=== PATIENT | female | born 1960 | race Caucasian/White ===

== ENCOUNTER 2019-12-31 21:04 | Inpatient (IN) | payer MEDICAID, MEDICARE ==
[~2019-12-31] VITALS: Ht 162.6 cm; Wt 77.9 kg
--- NOTE | 2019-12-31 21:39 | RAD ---
Exam: CT head INDICATION: Slurred speech TECHNIQUE: Sequential axial images through the head were obtained without the administration of IV contrast. Comparisons: None FINDINGS: No focal parenchymal lesion or hemorrhage is identified. There is no midline shift or sulcal effacement. No acute vascular territory infarction is identified. Norton-white distinction is preserved. The ventricular system is within normal limits without compression hydrocephalus. The basal cisterns are well maintained. The visualized portions of the paranasal sinuses and mastoid air cells are well-pneumatized. No acute fractures. IMPRESSION: No acute intracranial abnormality. Exposure: One or more of the following in the visualized dose reduction techniques were utilized for this examination: 1. Automated exposure control 2. Adjustment of the MA and/or KV according to patient size Use of iterative of reconstructive technique FOR INTERNAL CODING PURPOSES Critical result: Findings discussed with CHRISTIN KWAN at 12/31/2019 9:34 PM. RESULT CODE: (C) Electronically signed by: Gabino Rios MD (12/31/2019 9:36 PM) [id number]
--- NOTE | 2019-12-31 21:44 | PHYS DOC ---
Adult General Chief Complaint Chief Complaint: NEURO SYMPTOMS/DEFICITS HPI HPI Patient is a 59-year-old female who presents with slurred speech and akathisia. Patient reports symptoms of akathisia for past 7 days but reports new onset drooling and slurred speech that started 3 days ago. Nothing known makes better or worse. Nothing is been tried at home to make symptoms better or worse. Patient reports past medical history of bipolar depression and seizures, reports taking Keppra daily, Pristiq for depression daily, and recently discontinued Rexulti (2nd gen antipsychotic) in outpatient setting 11 days ago as this was thought to have caused patient's newly developed movement disorder. Patient denies any recent antibiotic use, febrile illness, recent travel, or illicit drug abuse. Patient ambulatory to our ED today and denies any motor/sensory/focal neurologic deficits Review of Systems Review of Systems Fourteen body systems of review of systems have been reviewed. See HPI for pertinent positives and negative responses, other goddard all other systems are negative, non-pertinent or non-contributory Physical Exam Physical Exam Constitutional: Well developed, well nourished, moderate acute distress, drooling at corners of mouth with generalized body shaking that appears uncontrollable. Was ambulatory without noticeable gait deficits. [] HENT: Normocephalic, atraumatic, bilateral external ears normal, oropharynx moist, no oral exudates, nose normal. [] Eyes: PERRLA, EOMI, conjunctiva normal, no discharge. [] Neck: Normal range of motion, no tenderness, supple, no stridor. [] Cardiovascular:Heart rate tachycardic, regular rhythm, no murmur [] Lungs & Thorax: Bilateral breath sounds clear to auscultation [] Abdomen: Bowel sounds normal, soft, no tenderness, no masses, no pulsatile masses. [] Skin: Warm, dry, no erythema, no rash. [] Back: No tenderness, no CVA tenderness. [] Extremities: No tenderness, no cyanosis, no clubbing, ROM intact, no edema. [] Neurologic: Alert and oriented X 3, cranial nerves II through XII intact, normal motor function, normal sensory function, no focal deficits noted. [] Psychologic: Flat affect, anxious, depressed mood [] Current Patient Data Vital Signs Vital Signs Date Time Temp Pulse Resp B/P (MAP) Pulse Ox O2 Delivery O2 Flow Rate FiO2 12/31/19 21:59 119 15 136/91 (106) 96 12/31/19 21:49 121 18 128/95 (106) 96 12/31/19 21:39 129 14 108/68 (81) 98 12/31/19 21:28 140 15 136/102 (113) 97 Room Air 12/31/19 21:14 97.0 130 31 143/116 (125) 98 Room Air Lab Results Laboratory Tests Test 12/31/19 21:17 12/31/19 21:32 Glucose (Fingerstick) 217 mg/dL White Blood Count 13.8 x10^3/uL Red Blood Count 4.97 x10^6/uL Hemoglobin 15.4 g/dL Hematocrit 46.8 % Mean Corpuscular Volume 94 fL Mean Corpuscular Hemoglobin 31 pg Mean Corpuscular Hemoglobin Concent 33 g/dL Red Cell Distribution Width 17.2 % Platelet Count 349 x10^3/uL Neutrophils (%) (Auto) 70 % Lymphocytes (%) (Auto) 22 % Monocytes (%) (Auto) 6 % Eosinophils (%) (Auto) 1 % Basophils (%) (Auto) 1 % Neutrophils # (Auto) 9.7 x10^3uL Lymphocytes # (Auto) 3.0 x10^3/uL Monocytes # (Auto) 0.8 x10^3/uL Eosinophils # (Auto) 0.1 x10^3/uL Basophils # (Auto) 0.1 x10^3/uL Prothrombin Time 11.0 SEC Prothromb Time International Ratio 1.1 Activated Partial Thromboplast Time 23 SEC Sodium Level 140 mmol/L Potassium Level 3.6 mmol/L Chloride Level 101 mmol/L Carbon Dioxide Level 23 mmol/L Anion Gap 16 Blood Urea Nitrogen 11 mg/dL Creatinine 1.4 mg/dL Estimated GFR (Cockcroft-Gault) 38.5 Glucose Level 200 mg/dL Calcium Level 9.8 mg/dL Creatine Kinase 100 U/L Troponin I Quantitative < 0.017 ng/mL Salicylates Level < 2.8 mg/dL Salicylate Last Dose Date Unknown Salicylate Last Dose Time Unknown Acetaminophen Level < 2 mcg/mL Acetaminophen Last Dose Date Unknown Acetaminophen Last Dose Time Unknown Ethyl Alcohol Level < 10 mg/dL Current Medications Medications (Trade) Dose Ordered Sig/Johny Route PRN Reason Start Time Stop Time Status Last Admin Dose Admin Sodium Chloride 1,000 ml @ 1,000 mls/hr 1X ONCE IV 12/31/19 21:45 12/31/19 22:44 12/31/19 21:54 Diphenhydramine HCl (Benadryl) 50 mg 1X ONCE IVP 12/31/19 21:45 12/31/19 21:52 DC Lorazepam (Ativan Inj) 1 mg 1X ONCE IVP 12/31/19 22:00 12/31/19 22:01 DC 12/31/19 22:25 Current Patient Data Laboratory Tests Test 12/31/19 21:17 Glucose (Fingerstick) 217 mg/dL (70-99) H EKG EKG EKG obtained and interpreted by myself at 2137 hrs. as narrow complex sinus tachycardia at 135 bpm, prolonged QTC 509 otherwise remaining intervals within normal limits, no axis deviation, no obvious ischemic findings among artifact from patient's movement disorder, no STEMI Radiology/Procedures Radiology/Procedures PROCEDURE: PORTABLE CHEST 1V EXAM: AP View of the chest DATE: 12/31/2019 9:17 PM INDICATION: Reason: code stroke, short of air, shakiness, slurred speech / Spl. Instructions: / History: COMPARISON: No Prior FINDINGS: The heart is not enlarged. Mediastinal and hilar contours are normal. No focal parenchymal airspace opacity. No pleural effusion or pneumothorax. Spinal leads project over the thoracic spine. IMPRESSION: 1. No radiographic evidence for acute cardiopulmonary process. Electronically signed by: Grant Coates MD (12/31/2019 9:53 PM) [facility] PROCEDURE: CT CODE STROKE HEAD WO Exam: CT head INDICATION: Slurred speech TECHNIQUE: Sequential axial images through the head were obtained without the administration of IV contrast. Comparisons: None FINDINGS: No focal parenchymal lesion or hemorrhage is identified. There is no midline shift or sulcal effacement. No acute vascular territory infarction is identified. Norton-white distinction is preserved. The ventricular system is within normal limits without compression hydrocephalus. The basal cisterns are well maintained. The visualized portions of the paranasal sinuses and mastoid air cells are well-pneumatized. No acute fractures. IMPRESSION: No acute intracranial abnormality. Exposure: One or more of the following in the visualized dose reduction techniques were utilized for this examination: 1. Automated exposure control 2. Adjustment of the MA and/or KV according to patient size Use of iterative of reconstructive technique FOR INTERNAL CODING PURPOSES Critical result: Findings discussed with CHRISTIN KWAN at 12/31/2019 9:34 PM. RESULT CODE: (C) Course & Med Decision Making Course & Med Decision Making Ambulatory patient with nonspecific movement disorder and observed restlessness was ambulatory to ED room, given presenting complaint and visual drooling of mouth code stroke was called Expedited history, comprehensive physical exam, NIHSS, and blood work obtained prior to patient transport for urgent CT head without contrast [id number] glucose non-concerning, IV access obtained with initiation of IV fluid rehydration, 25 mg IV Benadryl, and 1 mg IV Ativan given for patient's apparent acute dystonia/akathisia/TD Work-up reviewed with patient, not a candidate for invasive medical therapy at this time no immediate life-threatening conditions identified this ER stay. Patient has mild leukocytosis but highly doubt this is from infectious process, most likely reactive in nature I fear patient's ability to go home alone and care for self given current condition suffering from symptomatic tar dive dyskinesia/akathisia. Joint decision to admit patient for further evaluation and for neurology consultation tomorrow On-call hospitalist, Dr. Payan, was contacted and case discussed. He agreed to admit patient for continued medical work-up and management of patient's akathisia/TD Dragon Disclaimer Dragon Disclaimer This electronic medical record was generated, in whole or in part, using a voice recognition dictation system. TPA Screening Tool TPA Screening Tool Screening tool completed (time):2124 Last known normal time: +72 hours prior to arrival Allergies: NKDA Criteria for treating patient with IV r-TPA: For symptom onset of 3 hours or less answer questions 1-9: If any answer 1-9 is YES, the patient is NOT Candidate for IV r-TPA. 1. Evidence of intracranial hemorrhage on pretreatment CT. 2. Clinical presentation suggestive of subarachnoid hemorrhage, even with normal CT 3. Known arteriovenous malformation or aneurysm. 4. Recent (within 3 months), intracranial surgery, serious head trauma, or previous stroke. 5. History of intracranial hemorrhage. 6. On repeated measurements, systolic blood pressure >185 mmHg or diastolic blood pressure >110 mmHg at the time treatment is to begin, and pt requires aggressive treatment to reduce blood pressure to within these limits (see BP Management section of TPA orders). 7. Known bleeding diathesis, including but not limited to: A) Platelet count less than 100,000mm3 B) Current or recent use of oral anticoagulants (e.g. Warfarin Sodium) with an INR greater than 1.7 C) Administration of heparin within 48 hours preceding the onset of stroke and an elevated PTT 8. Evidence of active bleeding or acute trauma. 9. Patient or family refuse. Warning/Consideration: If any answer 10-18 is YES, evaluate increased risk versu s benefit. 10. Minor neurological deficit or rapidly improving symptoms. 11. Patient was observed to have seizure at the same time of onset of stroke symptoms. 12. Abnormal blood glucose (less than 50 or greater than 400 mg/dL). 13. Patient has had major surgery or serious trauma, excluding head trauma, in previous 14 days. 14. History of gastrointestinal or urinary track hemorrhage within 21 days. 15. Post ME or pericarditis. 16. Recent arterial puncture at a noncompressible site. 17. Recent lumbar puncture. 18. . For symptoms greater than 3 hours but less than 4.5 hours duration: Warning/Consideration: If any answer 19-22 is YES, evaluate increased risk versus benefit. 19. Age greater than 80 years. 20. Current use of oral anticoagulants (e.g.Warfarin Sodium) regardless of protime. 21. Severe stroke (Baseline NIHSS Stroke Scale greater than 25). 22. Patient has both diabetes and history of stroke Initiate TPA (Alteplase)? No. Patient with history of stroke and prior TPA administration has NIHSS 0 today with last known normal greater than 72 hours prior to arrival, not a cand idate at this time. Critical Care Time Critical Care Time This patient required critical care. Due to the fact that the patient required a significant amount of one on one physician - patient contact time, ordering and review of studies, arranging urgent treatment with development of a management plan, evaluation of patients response to treatment with frequent reassessments, and discussions with other providers this patient required critical care time in excess of 30 minutes. Critical care time was indicated due to the inherent instability and/or potential for instability in this patient. The critical care time that is allocated to this patient is above and beyond any time spent on any other billable procedures performed on this patient. Final Impression Final Impression Acute akathisia/TD/dystonia History of bipolar depression History of CVA status post TPA administration Departure Departure: Impression: Primary Impression: Antipsychotic-induced akathisia Additional Impressions: At risk for aspiration Elevated serum creatinine Narrow complex tachycardia Disposition: ADMITTED INPATIENT Admitting Physician: Dorian Payan Condition: STABLE Referrals: PCP,NO (PCP) Justification of Admission: Justification of Admission: Justification of Admission Dx: Yes (Symptomatic tar dive dyskinesia requiring inpatient management and neurologist consultation) Problem Qualifiers CHRISTIN KWAN DO Dec 31, 2019 21:44
[2019-12-31] MEDS ORDERED: IV NORMAL SALINE 1,000ML 1,000 ML IV ONE ×2 (21:45→23:30)
[2019-12-31] MEDS ORDERED: diphenhydrAMINE 50 MG/ML VIAL IVP ONE ×2 (21:45→22:30)
--- NOTE | 2019-12-31 21:56 | RAD ---
EXAM: AP View of the chest DATE: 12/31/2019 9:17 PM INDICATION: Reason: code stroke, short of air, shakiness, slurred speech / Spl. Instructions: / History: COMPARISON: No Prior FINDINGS: The heart is not enlarged. Mediastinal and hilar contours are normal. No focal parenchymal airspace opacity. No pleural effusion or pneumothorax. Spinal leads project over the thoracic spine. IMPRESSION: 1. No radiographic evidence for acute cardiopulmonary process. Electronically signed by: Grant Coates MD (12/31/2019 9:53 PM) SELMA
[2019-12-31 22:07] LABS: BASO # 0.1 x10^3/uL (0.0-0.2); BASO % 1 % (0-3); EOS # 0.1 x10^3/uL (0.0-0.7); EOS % 1 % (0-3); HEMATOCRIT 46.8 % (36.0-47.0); HEMOGLOBIN 15.4 g/dL (12.0-15.5); LYMPH % 22 % (24-48); MEAN CORPUSCULAR HEMOGLOBIN 31 pg (25-35); MEAN CORPUSCULAR HGB CONC 33 g/dL (31-37); MEAN CORPUSCULAR VOLUME 94 fL (79-100); MONO # 0.8 x10^3/uL (0.0-1.1); MONO % 6 % (0-9); NEUT # 9.7 x10^3uL (1.8-7.7); NEUT % 70 % (31-73); PLATELET COUNT 349 x10^3/uL (140-400); RED BLOOD COUNT 4.97 x10^6/uL (3.50-5.40); RED CELL DISTRIBUTION WIDTH 17.2 % (11.5-14.5); WHITE BLOOD COUNT 13.8 x10^3/uL (4.0-11.0)
[2019-12-31 22:13] LABS: CALCIUM 9.8 mg/dL (8.5-10.1); CREATININE 1.4 mg/dL (0.6-1.0); GFR 38.5; POTASSIUM 3.6 mmol/L (3.5-5.1)
[2019-12-31 22:17] LABS: ACETAMIN < 2 mcg/mL (10-30); ETHANOL < 10 mg/dL (0-10); SALIC < 2.8 mg/dL (2.8-20.0)
--- NOTE | 2019-12-31 23:25 | EKG ---
[address] [address] Test Date: 2019-12-31 Test Time: 21:30:07 Pat Name: NORMAN ANGEL Department: Room: Gender: F Rewrite Editor: : 1960 Requested By: CHRISTIN KWAN Order Number: [id number] Reading MD: Measurements Intervals [place] Rate: 135 P: 30 [place]: 104 QRS: 7 QRSD: 80 T: 99 QT: 336 QTc: 509 Interpretive Statements SINUS TACHYCARDIA COMPLEX(ES) WITH ABERRANT INTRAVENTRICULAR CONDUCTION S1,S2,S3 PATTERN ST & T ABNORMALITY, CONSIDER HIGH LATERAL ISCHEMIA OR LEFT VENTRICULAR STRAIN ABNORMAL ECG RI6.02 No previous ECG available for comparison
[2019-12-31] MEDS ORDERED: diphenhydrAMINE 50 MG/ML VIAL IVP PRN (23:30)
[2020-01-01] VITALS (7 sets, daily range): BP systolic 92–135; BP diastolic 62–96
[2020-01-01 02:36] LABS: AMPHETAMINE/METHAMPHETAMINE NEG (NEG); BARBITURATES NEG (NEG); BENZODIAZEPINES NEG (NEG); CANNABINOIDS NEG (NEG); COCAINE NEG (NEG); METHADONE NEG (NEG); OPIATES NEG (NEG); PHENCYCLIDINE NEG (NEG)
[2020-01-01 02:41] LABS: CLARITY,URINE CLEAR; COLOR,URINE YELLOW; GLUCOSE,URINE NEG (NEG)
[2020-01-01 02:43] LABS: BACTERIA,URINE 0 /HPF (0-FEW); BILIRUBIN,URINE NEG (NEG); NITRITE,URINE NEG (NEG); RBC,URINE 0 /HPF (0-2); SQUAMOUS EPITHELIAL CELL,UR MANY /LPF; UROBILINOGEN,URINE 0.2 mg/dL (0.2 mg/dL); WBC,URINE OCC /HPF (0-4)
[2020-01-01] MEDS ORDERED: ALPR1TAB6 PO (11:01)
[2020-01-01] MEDS ORDERED: LEVE750T23 PO (11:01)
[2020-01-01] MEDS ORDERED: BREX2TAB PO (11:01)
[2020-01-01] MEDS ORDERED: DESV50TA12 PO (11:01)
[2020-01-01] MEDS ORDERED: ALPRAZolam 0.5 MG TABLET PO SCH ×2 (11:45→12:15)
[2020-01-01] MEDS ORDERED: DESVENLAFAXINE 50 MG TAB.ER.24H. PO SCH (12:00)
--- NOTE | 2020-01-01 17:30 | HP ---
ADMIT DATE: 12/31/2019 HISTORY OF PRESENT ILLNESS: The patient is a 59-year-old female patient who came to the Emergency Room complaining of slurring speech and akathisia. She reported symptoms of akathisia for about 7 days, but reports new onset drooling and slurred speech that started 3 days ago, noting nothing known makes her symptoms better or worse. She apparently stopped her Rexulti about 11 days ago. This was thought to have caused the patient's newly developed movement disorder. She stated that her symptoms got worse since Monday, Monday, Monday. Yesterday, her symptoms were dramatically worsened and she came to the Emergency Room for further evaluation and treatment. She did complain of difficulty also swallowing, but denied any weakness, tingling, or numbness. She was evaluated in the Emergency Room and her lab work shows slightly elevated white cell count of 13,800. Her chemistry showed that her blood sugar is slightly elevated and mild lactic acidosis and high anion gap of 16, slightly impaired kidney function. Her urinalysis was essentially unremarkable and toxic screen was essentially negative. CT scan of the head showed the patient has no acute intracranial abnormalities and her chest x-ray also showed no radiographic evidence for acute cardiopulmonary process and the patient was admitted for further evaluation and to consult the neurologist. PAST MEDICAL HISTORY: Significant for stroke with right sided hemiplegia, aphasia and dysphagia in 2016. She has had multiple seizures since then. She has multiple TIAs that manifest usually as marked confusion. She has a history of hyperlipidemia and bronchial asthma. PAST SURGICAL HISTORY: Significant for 7 back surgeries. She has total abdominal hysterectomy, bilateral salpingo-oophorectomy, cholecystectomy, appendectomy, right ankle fracture, status post open reduction and internal fixation, left knee arthroscopic surgery. She underwent colonoscopy with polypectomy and esophagogastroduodenoscopy and esophageal dilatation about 10 years ago. ALLERGIES: SHE IS ALLERGIC TO PENICILLIN. MEDICATIONS: She is currently on following medications: She is on Keppra 750 mg once a day extended release form. She is on desvenlafaxine 50 mg daily, Rexulti 2 mg at bedtime, alprazolam 1 mg daily. FAMILY HISTORY: She has 3 brothers, 1 older and has lung cancer and colon cancer. Two younger brothers are healthy. Her mother is alive at age of 84 and she is in remission from leukemia and bone cancer. Her father is still alive at age of 84. Has thyroid disease and diabetes mellitus. SOCIAL HISTORY: She currently lives with her boyfriend. She has 1 son who is alive and 1 daughter that was . She has never smoked. Drinks alcohol occasionally. Does not use any drugs and she is currently on disability. REVIEW OF SYSTEMS: The patient denies any blurring of vision, cataract, glaucoma or macular degeneration. Denied any earache, tinnitus or sensorineural deafness. Denied any nosebleeds, stuffy nose or postnasal drip. Denied any sore throat, sore tongue, toothache, hoarseness of voice. Did complain of difficulty swallowing, had some nausea and vomiting yesterday. Denied any diarrhea or constipation. Denied any hematemesis, melena, hematochezia. Denied any dysuria, frequency or hematuria. Denied any chest pain, shortness of breath, orthopnea or paroxysmal nocturnal dyspnea. Denied any cough, phlegm or hemoptysis. Denied any chills, rigors or fever. Her most complaint was her slurring of speech and drooling as well as akathisia with unstoppable tremors. She apparently was given dose of Ativan and Benadryl and that somehow helped her tremors. PHYSICAL EXAMINATION: GENERAL: On arrival to the Emergency Room, she looked well and was clearly in no apparent respiratory distress. No pallor, jaundice, cyanosis or thyromegaly. No jugular venous distention. No limb edema. VITAL SIGNS: Her heart rate was 130, blood pressure was 143/116, temperature was 97, respiratory rate was 31 and oxygen saturation was 98%. HEAD, EYES, EARS, NOSE AND THROAT: Normocephalic, atraumatic. NECK: Supple. HEART: Showed normal first and second heart sounds. No gallop or murmur. CHEST: Clear to auscultation. No crepitation or rhonchi. ABDOMEN: Distended, soft, nontender. No guarding or rigidity. No organomegaly. All hernial orifice intact. Bowel sounds normal. NEUROLOGIC: She is awake, alert, responding appropriately. All cranial nerves intact. She moves extremities; however, she has constant tremors in her right upper and right lower extremity. I have not seen her drooling and she was able to talk at least when I saw her without any difficulty. LABORATORY DATA: Showed a white cell count of 13,800, hemoglobin 15.4, hematocrit 46, MCV 94 and platelet count 349,000. Her chemistry showed a serum sodium 140, potassium 3.6, chloride 101, bicarbonate 23, anion gap of 16, BUN 11, creatinine 1.4, estimated GFR was 38 mL per minute. Her glucose was 200, calcium was 9.8, lactic acid was 2.2. CK was 100. Her prothrombin time, INR and aPTT were normal. Toxic screen was unremarkable and urinalysis was essentially unremarkable. Urine was yellow, clear with a pH of 5, specific gravity more than 1.030. The urine was negative for protein, glucose, trace of ketones, negative for blood, nitrite, leukocyte esterase. There are no rbc's, no wbc's, and no bacteria. ASSESSMENT AND PLAN: In summary, the patient was admitted basically with abnormal movement in the form of tremors. Her serum creatinine is slightly elevated and she has obviously other medical problems which include seizures, bipolar disorder. She has had a history of stroke before with right sided hemiplegia, aphasia and dysphagia. We stopped the Rexulti and I will consult Dr. Keys to assist with management and I will look also into Pristiq and see it can induce this form of abnormal movement, I will discontinue that also. IAN BRENNAN MD DR: JOSE MARTIN/ritika JOB#: [id number] / [id number]
[2020-01-01] MEDS: POTASSIUM CL 20MEQ-0.45% NACL 1,000 ML IV SCH (17:47)
[2020-01-01] MEDS ORDERED: NON FORMULARY ITEM (Brexpiprazole (Rexulti) 2 MG) PO SCH (21:00)
[2020-01-01] MEDS ORDERED: LORazepam 1 MG TABLET PO SCH (21:00)
[2020-01-01] MEDS ORDERED: levETIRAcetam 250 MG TABLET PO SCH (21:00)
[2020-01-01] MEDS: diphenhydrAMINE HCL 25 MG CAPSULE PO SCH (21:07)
[2020-01-01] MEDS: levETIRAcetam 500 MG TABLET PO SCH (21:07)
--- NOTE | 2020-01-02 01:14 | CONS ---
DATE OF CONSULTATION: 01/01/2020 NEUROLOGIC CONSULTATION REFERRING PHYSICIAN: Dr. Sanchez. REASON FOR CONSULTATION: Intermittent abnormal movements. HISTORY OF PRESENT ILLNESS: This is a 59-year-old right-handed female who was admitted through Emergency Room on 12/31/2019 on account of slurred speech and intermittent movements of the entire body for approximately 2-3 months. These symptoms have worsened in the last 7 days and more prominent the night before admission. She described jerking movement of the upper and lower extremities and shaking of the tongue. The patient stated she has had history of depression with intermittent psychosis. She was placed on atypical antipsychotic medication called Rexulti, which was discontinued approximately 10 days ago; however, her symptoms have been worsened in the last 3 days. The patient admitted of having anxiety disorders, which usually aggravated her symptoms. She denies headaches, visual disturbances, nausea, vomiting, chest pain, shortness of breath or palpitation, weakness or paresthesia. In the Emergency Room, initial nonenhanced head CT scan revealed no acute intracranial process. The patient was treated with Ativan and Benadryl with significant improvement of movement. She denies rigidity, fever or chills. PAST MEDICAL HISTORY: Significant for stroke resulted in right hemiparesis with aphasia in 2016, seizure disorder resulted from the stroke, frequent transient ischemic attacks, hyperlipidemia and asthma. Depression and anxiety disorder. PAST SURGICAL HISTORY: Positive for total abdominal hysterectomy, cholecystectomy, appendectomy, right ankle fracture required surgery, left knee arthroscopic surgery, colonoscopy with polypectomy and esophageal stricture required dilatation. SOCIAL HISTORY: The patient is single. He has 1 son and 1 daughter, Adela, who 8 years ago from severe pneumonia. She denies smoking, but she drinks alcohol occasionally. She denies illegal drug use. FAMILY HISTORY: One brother had lung cancer and colon cancer. Mother is 84-year-old and had leukemia with remission along with bone cancer. Father is 84-year-old and had diabetes mellitus and thyroid disease. CURRENT HOME MEDICATIONS: Keppra 750 mg once daily, Pristiq 25 mg daily. CURRENT HOSPITAL MEDICATIONS: Benadryl 25 mg at bedtime, lorazepam 1 mg at bedtime and alprazolam 1 mg p.r.n. for agitation. ALLERGIES: PENICILLIN. REVIEW OF SYSTEMS: A 10-point review of system was performed as mentioned above in history of present illness, otherwise unremarkable. PHYSICAL EXAMINATION: GENERAL: Well-developed, well-nourished female, not in acute distress. She weighs 74.7 kilos. VITAL SIGNS: Blood pressure 120/88, respiratory rate is 17, pulse is 86, temperature 98.3, oxygen saturation 96% on room air. HEENT: Normocephalic, atraumatic, otherwise unremarkable. NECK: Supple. Negative for carotid bruit, lymphadenopathy or thyromegaly. LUNGS: Clear to A and P. CARDIOVASCULAR: Regular rate and rhythm, normal S1, S2. There is no S3, S4 or murmur. ABDOMEN: Soft. Bowel sounds positive. EXTREMITIES: Negative for cyanosis, clubbing or edema. NEUROLOGICAL: MENTAL STATUS: The patient is alert and oriented x 3. Speech is fluent. There is no language dysfunction. Memory, judgment, and abstracting thinking are normal. The patient denies hallucination or delusion. CRANIAL NERVES: Visual lopez are full. The pupils are reactive to light and accommodation. Extraocular movements are intact. There is no nystagmus. There is no facial motor or sensory deficit. Hearing is intact bilaterally. The palate is elevated symmetrically. Sternocleidomastoid muscles are powerful bilaterally. The patient shrugs her shoulders symmetrically, protrudes her tongue in the midline without fasciculation or atrophy. MOTOR EXAMINATION: No focal muscle bulk was seen. The tone is normal. The strength is 5/5 throughout. The patient had mild postural tremor of the upper extremities. SENSORY EXAMINATION: Revealed normal pinprick, light touch, vibratory and position senses. Deep tendon reflexes were symmetric and hypoactive with absent Achilles responses. GAIT: The stance is steady. DIAGNOSTIC: Initial nonenhanced head CT scan revealed no acute intracranial process. Chest x-ray revealed no acute cardiopulmonary process. LABORATORY DATA: CBC revealed white blood cells of 13.8 thousand, hemoglobin 15.4, hematocrit 46.8 and platelet count 349,000. Chemistry revealed sodium of 140, potassium 3.6, chloride 101, CO2 of 23, BUN 11, creatinine 1.4, glucose 200. Lactic acid is high at 2.2, calcium 9.8, creatinine kinase is 100. Troponin level is normal with high TSH at 4. Urinalysis, no evidence of urinary tract infections. Urine drug screen is negative. DIAGNOSTIC DATA: EKG revealed sinus tachycardia in the Emergency Room with prolonged QTC, otherwise unremarkable. IMPRESSION: 1. Involuntarily movement disorders, probably induced by typical antipsychotic medication -- Rexulti. 2. Multiple medical problems include anxiety disorder, depressions with intermittent psychotic features. 3. Seizure disorder, probably due to old stroke in 2016. 4. Multiple medical problems include recurrent transient ischemic attacks, hypertension and asthma. RECOMMENDATIONS: 1. Continue with current anticonvulsant -- Keppra for seizure. 2. Continue with current management initiated by Dr. Sanchez and home medications. 3. Treat the underlying depressions and anxiety. 4. We will arrange for electroencephalogram on outpatient basis. 5. We will repeat a CBC and chemistry in the morning. M Neal SALAZAR MD DR: MIMI/ritika JOB#: [id number] / [id number]
[2020-01-02] MEDS: POTASSIUM CL 20MEQ-0.45% NACL 1,000 ML IV SCH ×2 (04:09→13:51)
[2020-01-02 06:04] VITALS: BP 115/69
[2020-01-02 06:21] LABS: HEMOGLOBIN 12.1 g/dL (12.0-15.5); RED BLOOD COUNT 3.84 x10^6/uL (3.50-5.40); RED CELL DISTRIBUTION WIDTH 16.6 % (11.5-14.5)
[2020-01-02 06:37] LABS: ALBUMIN 2.9 g/dL (3.4-5.0); CALCIUM 7.9 mg/dL (8.5-10.1); GFR 56.7; POTASSIUM 3.5 mmol/L (3.5-5.1); TOTAL BILIRUBIN 0.4 mg/dL (0.2-1.0); TOTAL PROTEIN 5.9 g/dL (6.4-8.2)
[2020-01-02] MEDS: DESVENLAFAXINE SUCCINATE 25 MG PO SCH ×2 (07:02→11:59)
[2020-01-02] MEDS: levETIRAcetam 500 MG TABLET PO SCH ×2 (08:14→21:30)
--- NOTE | 2020-01-02 09:55 | PN ---
DATE: 01/02/2020 REFERRING PHYSICIAN: Dr. Sanchez. SUBJECTIVE: The patient continues to have continuous involuntarily movement involving the upper extremities and lips consistent with tardive dyskinesia, likely due to side effects of atypical antipsychotic medication, Rexulti which was discontinued about 12 days ago. She denies headaches, visual disturbances or any other new medical or neurological complaints. OBJECTIVE: GENERAL: Well-developed, well-nourished female, not in acute distress. VITAL SIGNS: Blood pressure 115/69, respiratory rate 20, pulse is 69, temperature is 97.3, oxygen saturation 97% on room air. HEENT: Normocephalic, atraumatic, otherwise unremarkable. NECK: Supple. Negative for carotid bruit, lymphadenopathy or thyromegaly. LUNGS: Clear to A and P. CARDIOVASCULAR: Regular rate and rhythm, normal S1, S2. ABDOMEN: Soft. Bowel sounds positive. EXTREMITIES: Negative for cyanosis, clubbing or edema. NEUROLOGICAL EXAM: Mental Status: The patient is alert and oriented x 3. The speech is fluent. There is no language dysfunction. Cranial nerves are intact. Motor examination continues to have tardive dyskinesia involving the upper extremities and lips. Otherwise, the tone is normal. The strength is 5/5 throughout. Sensory examination revealed normal pinprick and light touch senses throughout. Deep tendon reflexes were asymmetric and hypoactive with absent Achilles responses. Gait not tested. LABORATORY DATA: CBC revealed white blood cells of 5000, hemoglobin 12.1, hematocrit 36, platelet count 167. Chemistry revealed sodium of 140, potassium 3.5, chloride 107, CO2 of 25, BUN 8, creatinine 1, glucose 97, calcium 7.9. IMPRESSION: 1. Tardive dyskinesia as described above. 2. Seizure disorder secondary to previous stroke. 3. Multiple medical problems include frequent transient ischemic attacks, hypertension and asthma. RECOMMENDATIONS: 1. Treat the underlying tardive dyskinesia. The patient can be started on Ingrezza, but is not available primarily on the hospital formerly. 2. Continue with current management initiated by Dr. Sanchez along with current medications. 3. We will arrange for electroencephalogram on an outpatient basis. 4. Treat the underlying depressions and anxiety disorders. M Neal SALAZAR MD DR: MIMI/ritika JOB#: [id number] / [id number]
[2020-01-02 12:18] VITALS: BP 106/74
[2020-01-02] MEDS: DAPTOMYCIN IV SCH (13:09)
[2020-01-02] MEDS: NORMAL SALINE IV SCH (13:09)
--- NOTE | 2020-01-02 14:15 | PN ---
DATE: 01/02/2020 SUBJECTIVE: The patient is resting, slightly propped up in bed, somewhat sleepy, but arousable. Her tremors are much less than yesterday. She stated that she has been very sleepy, she has not slept for almost 4 nights according to her. We did give her also Ativan and diphenhydramine at bedtime last night and that might have contributed to that. She is also on alprazolam. PHYSICAL EXAMINATION: GENERAL: When I examined her this afternoon, she looked well and was clearly in no apparent respiratory distress. No pallor, jaundice, cyanosis or thyromegaly. No jugular venous distention. No lower limb edema. VITAL SIGNS: Her heart rate was 78, blood pressure was 106/74, temperature was 97.8, respiratory rate 12 and oxygen saturation was 96%. HEAD, EYES, EARS, NOSE AND THROAT: Showed normocephalic, atraumatic. NECK: Supple. HEART: Showed normal first and second heart sounds. No gallop or murmur. CHEST: Clear to auscultation. No crepitation or rhonchi. ABDOMEN: Distended, soft, nontender. No guarding or rigidity. No organomegaly. All hernial orifices intact. Bowel sounds normal. NEUROLOGIC: She is sleepy, but arousable. All cranial nerves intact. She moves extremities without difficulty. She managed to get out of the bed to a bedside commode. Her tremors and drooling is definitely much improved. Her intake was 1000. No output was recorded. LABORATORY DATA: As of this morning, her white cell count is down to 5000, hemoglobin 12, hematocrit 36, MCV 94 and platelet count of 167,000. Serum sodium was 140, potassium 3.5, chloride 107, bicarbonate 25, anion gap of 8, BUN 8, creatinine 1, estimated GFR was 56 mL per minute. Her glucose 97, calcium was 7.9 and total bilirubin, AST, ALT, alkaline phosphatase were normal. Total protein was 5.9, albumin was 2.9. Her PT, INR and aPTT are all normal. Urinalysis essentially unremarkable and toxic screen was negative. ASSESSMENT: 1. Abnormal movement induced by antipsychotic medication, much improved now that her Rexulti was discontinued and her Pristiq is cut down from 50 to 25. 2. Acute kidney injury, improving. 3. Seizure disorder for which she is on Keppra. 4. She apparently had initially some dysphagia and possible aspiration pneumonia and her blood cultures have grown gram-positive cocci in clusters suggestive of Staph in 2/4 bottles. I did start her on daptomycin. We will add Zosyn to cover anaerobes and I have consulted Physical and Occupational Therapy as well as Speech Therapy. I would also consult Dr. Lee to assist with management of her bipolar disorder. IAN BRENNAN MD DR: JOSE MARTIN/ritika JOB#: [id number] / [id number]
[2020-01-02] MEDS ORDERED: LORazepam 0.5 MG TABLET PO PRN (14:45)
[2020-01-02 15:49] VITALS: BP 114/77
[2020-01-02] MEDS: MEROPENEM 500 MG in IV NORMAL SALINE 50ML 50 ML IV SCH (16:37)
[2020-01-02 19:52] VITALS: BP 137/82
[2020-01-02] MEDS: diphenhydrAMINE HCL 25 MG CAPSULE PO SCH (21:30)
[2020-01-02 23:07] VITALS: BP 121/82
[2020-01-03] MEDS: MEROPENEM 500 MG in IV NORMAL SALINE 50ML 50 ML IV SCH ×2 (00:22→09:10)
[2020-01-03] MEDS: POTASSIUM CL 20MEQ-0.45% NACL 1,000 ML IV SCH ×3 (00:22→23:33)
[2020-01-03 06:18] VITALS: BP 114/89
[2020-01-03 06:18] LABS: HEMATOCRIT 37.8 % (36.0-47.0); HEMOGLOBIN 12.4 g/dL (12.0-15.5); RED BLOOD COUNT 3.96 x10^6/uL (3.50-5.40); RED CELL DISTRIBUTION WIDTH 16.8 % (11.5-14.5); WHITE BLOOD COUNT 3.7 x10^3/uL (4.0-11.0)
[2020-01-03 06:32] LABS: ALBUMIN 2.5 g/dL (3.4-5.0); ALBUMIN/GLOBULIN RATIO 0.8 (1.0-1.7); CALCIUM 7.9 mg/dL (8.5-10.1); CREATININE 0.9 mg/dL (0.6-1.0); GFR 64.1; POTASSIUM 3.8 mmol/L (3.5-5.1); TOTAL BILIRUBIN 0.4 mg/dL (0.2-1.0); TOTAL PROTEIN 5.5 g/dL (6.4-8.2)
[2020-01-03] MEDS ORDERED: BENZTROPINE 2 MG/2 ML AMPUL. IM PRN (09:00)
[2020-01-03] MEDS: LACTOBACILLUS RHAMNOSUS GG 1 CAPSULE. PO SCH ×2 (09:10→20:46)
[2020-01-03] MEDS: levETIRAcetam 500 MG TABLET PO SCH ×2 (09:11→20:46)
--- NOTE | 2020-01-03 09:24 | PN ---
DATE: 01/03/2020 SUBJECTIVE: The patient continues to have abnormal involuntarily movements of the hands and lips consistent with tardive dyskinesia probably induced by atypical antipsychotic medication. She denies chest pain, shortness of breath or palpitation, dysarthria or dysphagia. She feels weak all over. OBJECTIVE: GENERAL: Well-developed, well-nourished female, not in acute distress. VITAL SIGNS: Blood pressure 114/89, respiratory rate 20, pulse is 71, temperature 98.6, and oxygen saturation 97% on room air. HEENT: Normocephalic, atraumatic, otherwise unremarkable. NECK: Supple. Negative for carotid bruit, lymphadenopathy or thyromegaly. LUNGS: Clear to A and P. CARDIOVASCULAR: Regular rate and rhythm, normal S1, S2. ABDOMEN: Soft. Bowel sounds positive. EXTREMITIES: Negative for cyanosis, clubbing or edema. NEUROLOGIC EXAM: Mental status, alert and oriented x 3. Speech is fluent. There is no language dysfunction. Cranial nerves are intact. No focal motor or sensory deficits. The patient has tardive dyskinesia involving the hands and lips. Gait not tested. LABORATORY DATA: CBC revealed white blood cells of 3.7 thousand, hemoglobin 12.4, hematocrit 37.8, and platelet count 160,000. Chemistry: Sodium 140, potassium 3.8, chloride 108, CO2 of 22, BUN 6, creatinine 0.9, glucose 87, and calcium is 7.9. Blood culture grows positive cocci. IMPRESSION: 1. ___ movements involving the distal upper extremities and lips consistent with tardive dyskinesia, probably induced by previous atypical antipsychotics. 2. Positive blood culture for gram-positive cocci. Therefore, she was started on broad-spectrum antibiotic by Dr. Sanchez. 3. Seizure disorder -- stable. 4. Multiple psychiatric problems including depression, anxiety, and bipolar disorder. RECOMMENDATIONS: 1. We will start Cogentin 0.5 t.i.d. 2. Continue with current management. 3. Await for psychiatric consult by Dr. Lee. M Neal SALAZAR MD DR: MIMI/ritika JOB#: [id number] / [id number]
[2020-01-03] MEDS: BENZTROPINE MESYLATE 0.5 MG TABLET PO SCH ×3 (11:11→20:46)
[2020-01-03 11:51] VITALS: BP 114/85
[2020-01-03] MEDS: NORMAL SALINE IV SCH (13:31)
[2020-01-03] MEDS: DAPTOMYCIN IV SCH (13:31)
[2020-01-03] MEDS ORDERED: ALPRAZolam 0.5 MG TABLET PO PRN ×2 (13:45→14:00)
[2020-01-03] MEDS ORDERED: ACETAMINOPHEN 325 MG TABLET PO PRN (15:30)
--- NOTE | 2020-01-03 18:34 | PN ---
DATE: 01/03/2020 SUBJECTIVE: The patient is sitting on the edge of the bed, continued to complain of tremors. She is somewhat anxious, complaining of pain in her left leg; however, she was able to walk with a walker. PHYSICAL EXAMINATION: GENERAL: When I examined her, she looked well and was clearly in no apparent respiratory distress. No pallor, jaundice, cyanosis or thyromegaly. No jugular venous distention. No limb edema. VITAL SIGNS: Her heart rate was 60, blood pressure 114/85, temperature 99.3, respiratory rate was 20, and oxygen saturation was 97%. HEAD, EYES, EAR, NOSE AND THROAT: Normocephalic, atraumatic. NECK: Supple. HEART: Showed normal first and second heart sounds with no gallop or murmur. CHEST: Clear to auscultation. No crepitation or rhonchi. ABDOMEN: Distended, soft, nontender. NEUROLOGIC: She is awake, alert, responding appropriately. Surprisingly, her tremor is now more worse in the left side compared to when she was admitted, which was worse on the right side; however, she was able to stand and walk with a walker and back to her recliner without difficulty. Her intake over the last 24 hours was 2700. No output was recorded. LABORATORY DATA: As of this morning, her white cell count was 3700, hemoglobin 12, hematocrit 37, MCV 98 and platelet count of 160,000. Her chemistry showed a serum sodium 140, potassium 3.8, chloride 108, bicarbonate 22, anion gap of 10, BUN 6, creatinine 0.9, estimated GFR was 64 mL per minute. Her glucose was 87, calcium was 7.9. Total bilirubin, AST, ALT, alkaline phosphatase were normal. CK was only 69. Total protein was 5.5, albumin was 2.5. ASSESSMENT: 1. Abnormal movement induced antipsychotic medication, much improved now that her Rexulti was discontinued and her Pristiq was cut down. 2. Acute kidney injury, improving. Her creatinine is down from 1.4 to 0.9. 3. Seizure disorder for which she is on Keppra. 4. She apparently has some dysphagia and possible aspiration pneumonia. In fact, her blood cultures have grown gram-positive cocci in cluster suggestive of Staph. I will continue with daptomycin as well as Zyvox. 5. She has had previous history of cerebrovascular accident with right-sided hemiplegia, aphasia and dysphagia. She was seen by the Speech Therapy, who thinks that her dysphagia is esophageal as she had had a history of esophageal stricture and the stricture dilatation done by Dr. Mcwilliams before. I did consult Dr. Lee to assist in management of bipolar disorder after we discontinued some of her medication. IAN BRENNAN MD DR: JOSE MARTIN/ritika JOB#: [id number] / [id number]
[2020-01-03 20:00] VITALS: BP 135/69
[2020-01-03] MEDS: diphenhydrAMINE HCL 25 MG CAPSULE PO PRN (20:46)
[2020-01-03] MEDS: clonazePAM 0.5 MG TABLET PO PRN (20:46)
[2020-01-04 05:40] VITALS: BP 127/73
[2020-01-04] MEDS: BENZTROPINE MESYLATE 0.5 MG TABLET PO SCH (08:30)
[2020-01-04] MEDS: DESVENLAFAXINE SUCCINATE 25 MG PO SCH (08:30)
[2020-01-04] MEDS: levETIRAcetam 500 MG TABLET PO SCH ×2 (08:30→20:46)
[2020-01-04] MEDS: LACTOBACILLUS RHAMNOSUS GG 1 CAPSULE. PO SCH ×2 (08:31→20:46)
[2020-01-04] MEDS: POTASSIUM CL 20MEQ-0.45% NACL 1,000 ML IV SCH ×2 (10:10→20:47)
[2020-01-04 11:00] VITALS: BP 129/87
[2020-01-04] MEDS: CALCIUM CARBONATE 500 MG TAB.CHEW PO PRN ×2 (11:01→22:35)
--- NOTE | 2020-01-04 11:19 | PN ---
DATE: SUBJECTIVE: The patient denies any new medical or neurological complaints; however, she continues to have mild abnormal movements of the lips and hands, but she stated the tremor has been improved since she has been on Cogentin. OBJECTIVE: GENERAL: Well-developed, well-nourished female, not in acute distress. VITAL SIGNS: Blood pressure 127/73, respiratory rate 16, pulse is 72, oxygen saturation 97% on room air, and temperature 98.6. HEENT: Normocephalic, atraumatic; otherwise, unremarkable. NECK: Supple. Negative for carotid bruit, lymphadenopathy or thyromegaly. LUNGS: Clear to A and P. CARDIOVASCULAR: Regular rate and rhythm. Normal S1, S2. ABDOMEN: Soft. Bowel sounds positive. EXTREMITIES: Negative for cyanosis, clubbing or edema. NEUROLOGICAL EXAM: Mental Status: The patient is alert and oriented x 3. Speech is fluent. There is no language dysfunction, otherwise unremarkable. Cranial nerves are intact. Motor Examination: No focal muscle bulk was seen. The tone is normal. The strength is 4/5 throughout. The patient has repetitive movements of the lips and distal upper extremities consistent with tardive dyskinesia. Sensory Examination: Normal pinprick, light touch, vibratory and position senses. Deep tendon reflexes were symmetric and hypoactive with absent Achilles responses. Gait not tested. IMPRESSION: 1. Tardive dyskinesia probably induced by atypical antipsychotic medication. 2. Bipolar disorder, anxiety and depressions. 3. Seizure disorder, stable. RECOMMENDATIONS: 1. Continue with current management initiated by Dr. Sanchez. 2. We will increase Cogentin to 1 mg p.o. twice daily for now, but if she continues to have the abnormal movements. Then, I will increase the Cogentin to 1 mg 3 times daily. M Neal SALAZAR MD DR: MIMI/ritika JOB#: [id number] / [id number]
[2020-01-04] MEDS: DAPTOMYCIN IV SCH (13:46)
[2020-01-04] MEDS: NORMAL SALINE IV SCH (13:46)
[2020-01-04] MEDS: BENZTROPINE MESYLATE 1 MG TABLET PO SCH ×2 (15:03→20:46)
[2020-01-04 18:11] VITALS: BP 131/78
[2020-01-04] MEDS: diphenhydrAMINE HCL 25 MG CAPSULE PO PRN (20:46)
[2020-01-04] MEDS: clonazePAM 0.5 MG TABLET PO PRN (20:46)
--- NOTE | 2020-01-04 22:35 | PDOC ---
Exam Note: Antonio Note: This is a late entry for 01/03/2020. Please also refer to the separate dictated note~for this date of service dictated separately.~Patient seen individually. Discussed the patient with Nursing staff reviewed the chart.~Reviewed interim history and current functioning. Reviewed vital signs,~Labs/ Radiology~and cur rent medications noted below. Continue current treatment with the changes noted in the dictated addendum note Assessment: Vital Signs/I&O: Vital Signs Date Time Temp Pulse Resp B/P (MAP) Pulse Ox O2 Delivery O2 Flow Rate FiO2 01/04/20 20:00 Room Air 01/04/20 18:11 98.1 68 22 131/78 (95) 96 I & O 01/03/20 01/03/20 01/04/20 15:00 23:00 07:00 Intake Total 600 ml 360 ml Balance 600 ml 360 ml Current Medications: Meds: Current Medications Medications (Trade) Dose Ordered Sig/Johny Route PRN Reason Start Time Stop Time Status Last Admin Dose Admin Calcium Carbonate/ Glycine (Tums) 500 mg PRN AFTMEALHC PRN PO INDIGESTION 01/04/20 10:15 01/04/20 11:01 Benztropine Mesylate (Cogentin) 1 mg BID PO 01/04/20 14:30 01/04/20 20:46 I have reviewed the current psychotropics carefully including drug interactions. Risk benefit ratio favors no change other than as noted in my dictated progress note. Diagnosis: Problems: (1) MDD (major depressive disorder) (2) Schizoaffective disorder (3) Anxiety disorder, unspecified VERENICE NUNEZ MD Jan 04, 2020 22:35
--- NOTE | 2020-01-04 22:37 | CONS ---
DATE OF CONSULTATION: 01/03/2020 PSYCHIATRIC CONSULTATION This late entry date of service 01/03/2020 covers the elements not covered in my initial note. SUBJECTIVE: I met with the patient in the evening of 01/03/2020 on telehealth medium. Discussed the patient with Dr. Sanchez and with NOLA Rosa. IDENTIFYING DATA: The patient is a 59-year-old female, who was admitted via the Emergency Room after she presented with complaints of slurred speech and akathisia. She reported having symptoms of akathisia for about 7 days with new onset of drooling and slurred speech, starting 3 days previously. She had been on Rexulti 2 mg a day and states she started taking it every other day in an attempt to taper it and believes this was the cause of her movement disorder. CHIEF COMPLAINT: "I see Dr. Gonzales, psychiatrist at the [facility]. I was having tremors from the Rexulti and I started taking it every other day. I also takes Pristiq. I have been diagnosed with depression and schizoaffective disorder. I had a stroke and I am on disability. I have a case finishing machine adjuster through the [facility] and her name is Latisha." HISTORY OF PRESENT ILLNESS: Reportedly, the patient has a long history of schizoaffective disorder, bipolar type versus major depressive disorder. She has been in outpatient treatment as noted above. In the ER, lab studies show some elevation of white cells 13,800, slight elevation of blood glucose, mild lactic acidosis, high anion gap, slightly impaired kidney function. UA was unremarkable for toxic drug screen. CT head showed no acute changes. Chest x-ray, no acute cardiopulmonary processes. She has been followed by Dr. Keys, Neurology as well during this hospitalization. PAST PSYCHIATRIC HISTORY: As above. PAST MEDICAL HISTORY: Status post CVA, right sided hemiplegia, aphasia, dysphagia in 2016. She has had multiple seizures since then. Has a history of multiple TIAs, which worsened confusion, hyperlipidemia, and bronchial asthma. PAST SURGICAL HISTORY: Seven back surgeries, total abdominal hysterectomy, bilateral salpingo-oophorectomy, cholecystectomy, appendectomy, right ankle fractures, status post open reduction and internal fixation, left knee arthroscopic surgery; history of colonoscopy, polypectomy, EGD, and esophageal dilatation 10 years ago. ALLERGIES: PENICILLIN. CURRENT MEDICATIONS: 1. Keppra 750 mg extended release. 2. Pristiq 50 mg daily. 3. Rexulti 2 mg daily as noted above. 4. Xanax 1 mg daily. FAMILY HISTORY: No relevant psychiatric history. There is a history of thyroid disease, diabetes mellitus, leukemia, bone cancer, lung cancer, and colon cancer in the family. SOCIAL HISTORY: The patient lives with her boyfriend. She has 1 son who is alive. Daughter is . She has no alcohol or drug abuse. Nonsmoker. She is on disability. MENTAL STATUS EXAMINATION: The patient was seen individually in the evening of 01/03/2020 on telehealth medium withShelley RN. She is oriented. Speech is coherent, abstraction fair, computation impaired, language function intact. Mood is somewhat anxious. She does have a movement disorder on her facial muscles and tongue. No suicidal or homicidal ideation. IMPRESSION: Schizoaffective disorder, bipolar type; history of major depressive disorder, involuntary movement disorder, seizure disorder, status post cerebrovascular accident. PLAN: The patient has remained on Xanax p.r.n. and she is unsure if this is helpful with her anxiety. Given a history of seizure disorder, significant anxiety, worsening a movement disorder, we will change to Klonopin 0.5 mg t.i.d. p.r.n. Continue Cogentin initiated per Dr. Keys. We will keep her off the Rexulti for now. Maintain Pristiq, use Benadryl 50 mg at bedtime p.r.n. insomnia, may repeat x 1. Pristiq was reduced to 25 mg [address] day per Dr. Sanchez and this is appropriate. Dr. Sanchez, thank you for the opportunity to participate in your patient's care. We will follow with you. MAN Ankit NUNEZ MD DR: BIANCA/ritika JOB#: [id number] / [id number]
--- NOTE | 2020-01-05 01:11 | PN ---
DATE: 01/04/2020 SUBJECTIVE: The patient is sitting comfortably in her chair, in no apparent distress. She is awake, alert. She is definitely much improved. Her speech is much better, adding she has no tremors visible and according to the nursing staff, she was able to walk. She apparently was seen yesterday by Dr. Keys and Dr. Lee and she is now on clonazepam 0.5 mg 3 times a day as needed. She is on benztropine 1 mg twice a day and Benadryl 50 mg at bedtime. She continues to be on IV daptomycin. PHYSICAL EXAMINATION: GENERAL: When I saw her today, she looked well and was clearly in no apparent respiratory distress. No pallor, jaundice, cyanosis or thyromegaly. No jugular venous distention. No limb edema. VITAL SIGNS: Her heart rate was 85, blood pressure was 129/87, temperature was 98.8, respiratory rate was 18 and oxygen saturation was 96%. HEAD, EYES, EARS, NOSE AND THROAT: Normocephalic, atraumatic. NECK: Supple. HEART: Showed normal first and second heart sounds with no gallop or murmur. CHEST: Clear to auscultation. No crepitation or rhonchi. ABDOMEN: Distended, soft, nontender. NEUROLOGIC: She is grossly intact. She is definitely more awake, alert. All her cranial nerves intact. She has no more dysarthria, no drooling and no tremors that are visible and according to nursing staff, she was able to walk with a walker. INTAKE AND OUTPUT: Her intake was 1590, no output was recorded. LABORATORY DATA: Her lab work as of yesterday showed a white cell count of 3700, hemoglobin 12.4, hematocrit 37.8, MCV 96, and platelet count of 160,000. Her serum sodium was 140, potassium 3.8, chloride 108, bicarbonate 22, anion gap of 10, BUN 6, creatinine 0.9, estimated GFR was 64 mL per minute. Her glucose was 87, calcium was 7.9. Total bilirubin, AST, ALT, alkaline phosphatase were normal. CK was only 69 and total protein was 5.5, albumin was 2.5. Her blood culture showed growth of Gram-positive cocci identified as Staphylococcus capitis and Staphylococcus epidermidis and sensitivity is still pending at the time of this dictation. ASSESSMENT: 1. Abnormal movement induced by antipsychotic medication, much improved. She is now off her Rexulti and Pristiq was cut down. She is also on clonazepam 0.5 mg twice a day and Benadryl 50 mg at bedtime. 2. Acute kidney injury, resolved. Her creatinine came down from 1.4 to 0.8. 3. Seizure disorder, for which she is on Keppra. 4. She has dysphagia and possible aspiration pneumonia. In fact, her blood cultures have grown gram-positive cocci in cluster identified as Staphylococcus capitis and Staphylococcus epidermidis. She is now on IV daptomycin. 5. She has a previous history of cerebrovascular accident with right-sided hemiplegia, aphasia and dysphagia that has mostly resolved. 6. Dysphagia is rather oropharyngeal according to the speech therapist. 7. Dr. Lee was consulted and started her on clonazepam, Benadryl with good effect. PLAN: To continue with IV daptomycin. I would call [facility] tomorrow for the sensitivity and if she is allowed to go home, we will discharge her to continue on oral antibiotic. IAN BRENNAN MD DR: JOSE MARTIN/ritika JOB#: [id number] / [id number]
[2020-01-05] MEDS: POTASSIUM CL 20MEQ-0.45% NACL 1,000 ML IV SCH ×3 (05:27→21:15)
[2020-01-05 05:57] VITALS: BP 106/85
[2020-01-05 07:13] LABS: HEMATOCRIT 37.6 % (36.0-47.0); HEMOGLOBIN 12.3 g/dL (12.0-15.5); RED BLOOD COUNT 3.9 x10^6/uL (3.50-5.40); RED CELL DISTRIBUTION WIDTH 17.6 % (11.5-14.5); WHITE BLOOD COUNT 5.4 x10^3/uL (4.0-11.0)
[2020-01-05 07:18] LABS: ALBUMIN 2.9 g/dL (3.4-5.0); ALBUMIN/GLOBULIN RATIO 0.9 (1.0-1.7); CALCIUM 8.3 mg/dL (8.5-10.1); CREATININE 0.9 mg/dL (0.6-1.0); GFR 64.1; TOTAL BILIRUBIN 0.4 mg/dL (0.2-1.0); TOTAL PROTEIN 6.1 g/dL (6.4-8.2)
[2020-01-05] MEDS: levETIRAcetam 500 MG TABLET PO SCH ×2 (08:05→20:54)
[2020-01-05] MEDS: LACTOBACILLUS RHAMNOSUS GG 1 CAPSULE. PO SCH ×2 (08:05→20:54)
[2020-01-05] MEDS: DESVENLAFAXINE SUCCINATE 25 MG PO SCH (08:05)
[2020-01-05] MEDS: BENZTROPINE MESYLATE 1 MG TABLET PO SCH ×2 (08:06→20:55)
[2020-01-05 08:26] LABS: POTASSIUM 4.5 mmol/L (3.5-5.1)
--- NOTE | 2020-01-05 11:53 | PN ---
DATE: SUBJECTIVE: The patient denies any new medical or any new neurological complaints. She said she vomited yesterday twice and she felt weak; however, she is able to use a walker and walk in the room. The patient stated her tremor has been improved. OBJECTIVE: GENERAL: Well-developed, well-nourished female, not in acute distress. VITAL SIGNS: Blood pressure 106/85, respiratory rate 16, pulse is 61, temperature is 98.1, oxygen saturation 98% on room air. HEENT: Normocephalic, atraumatic, otherwise unremarkable. NECK: Supple. Negative for carotid bruit, lymphadenopathy or thyromegaly. LUNGS: Clear to A and P. CARDIOVASCULAR: Regular rate and rhythm, normal S1, S2. There is no S3, S4 or murmur. ABDOMEN: Soft. Bowel sounds positive. EXTREMITIES: Negative for cyanosis, clubbing or edema. NEUROLOGICAL EXAM: Mental Status: The patient is alert and oriented x 3. The speech is more fluent. There is no language dysfunction, otherwise, unremarkable. Cranial nerves are intact. Motor examination revealed no focal muscle bulk was seen. The tone is normal. The strength is 4/5 throughout. The patient had mild intermittent repetitive tremors of the distal upper extremities and lips consistent with tardive dyskinesia. Sensory examination revealed normal pinprick, light touch, vibratory and position senses. Deep tendon reflexes were symmetric and hypoactive with absent Achilles responses. Gait: The patient uses a walker for ambulation. IMPRESSION: 1. Tardive dyskinesia, probably induced by previous atypical antipsychotic medications. 2. Seizure disorder. 3. Multiple psychiatric problems include anxiety disorders, possible schizoaffective disorder and bipolar disorder. RECOMMENDATIONS: 1. Continue with current medical and psychiatric care. 2. We will increase Cogentin to 1 mg 3 times daily and continue with clonazepam given by Dr. Lee. M Neal SALAZAR MD DR: MIMI/ritika JOB#: [id number] / [id number]
--- NOTE | 2020-01-05 13:17 | PN ---
DATE: 01/05/2020 SUBJECTIVE: The patient is sitting comfortably in her recliner, in no apparent distress, awake, alert, stated that she did have 2 episodes of nausea, vomiting overnight, has none since then. She has not eaten much of her breakfast; however, she managed to walk all the way to the bathroom, had a shower today and she is feeling generally much improved. She is looking forward to go home tomorrow if everybody is agreeable. PHYSICAL EXAMINATION: GENERAL: When I examined her this afternoon, she looked well and was clearly in no apparent respiratory distress. No pallor, jaundice, cyanosis, or thyromegaly. No jugular venous distention or limb edema. VITAL SIGNS: Her heart rate was 61, blood pressure was 106/86, temperature was 98.1, respiratory rate was 16, and oxygen saturation was 98%. HEENT: Showed normocephalic, atraumatic. NECK: Supple. HEART: Showed normal first and second heart sounds. No gallop or murmur. CHEST: Clear to auscultation. No crepitation or rhonchi. ABDOMEN: Slightly distended, soft, nontender. NEUROLOGICALLY: She is awake, alert, responding appropriately. All cranial nerves intact. She moves all extremities without difficulty. I do not see any tremors today. Her intake over the last 24 hours was 960, no output was recorded. LABORATORY DATA: As of this morning, her white cell count was 5400, hemoglobin 12, hematocrit 37, MCV 96 and platelet count of 129,000. Her serum sodium was 139, potassium 4.5, chloride 105, bicarbonate 24, anion gap of 10, BUN 7, creatinine 0.9, estimated GFR was 64 mL per minute. Her glucose was 96, calcium was 8.3. Total bilirubin, AST, ALT, alkaline phosphatase were normal. Total protein was 6.1. Albumin was 2.9. ASSESSMENT: 1. Abnormal movement induced by antipsychotic medication, much improved. She is now off her Rexulti and Pristiq. Her Pristiq was cut down and she is also on clonazepam 0.5 mg twice a day and Benadryl 50 mg at bedtime. 2. Acute kidney injury, resolved. Her creatinine came down from 1.4 to 0.8. 3. Seizure disorder, for which she is on Keppra. 4. She has dysphagia and possible aspiration pneumonia. In fact, her blood cultures have grown gram-positive cocci in clusters identified as Staphylococcus capitis and Staph epidermidis. She is now on IV daptomycin. 5. She has a previous history of cerebrovascular accident with right-sided hemiplegia, aphasia and dysphagia, it has mostly resolved. 6. Dysphagia rather than oropharyngeal as per speech therapy recommendation. 7. The patient was seen by Dr. Lee and he recommended clonazepam, Benadryl with good effect. PLAN: Obviously to continue with Keppra for seizure disorder. Continue with Benadryl and clonazepam. Continue with daptomycin for gram-positive cocci. I will contact the [facility] tomorrow to find out more about sensitivity and if both the neurologist and psychiatrist felt that the patient is ready to be discharged, we will discharge her home. IAN BRENNAN MD DR: JOSE MARTIN/ritika JOB#: [id number] / [id number]
[2020-01-05] MEDS: DAPTOMYCIN IV SCH (13:41)
[2020-01-05] MEDS: NORMAL SALINE IV SCH (13:41)
[2020-01-05 15:36] VITALS: BP 100/62
[2020-01-05 21:00] VITALS: BP 110/74
[2020-01-05] MEDS: CALCIUM CARBONATE 500 MG TAB.CHEW PO PRN (23:12)
[2020-01-05] MEDS ORDERED: ONDANSETRON PF 4 MG/2 ML VIAL. IVP PRN (23:15)
[2020-01-06] MEDS: POTASSIUM CL 20MEQ-0.45% NACL 1,000 ML IV SCH (07:53)
[2020-01-06] MEDS: DESVENLAFAXINE SUCCINATE 25 MG PO SCH (07:57)
[2020-01-06] MEDS: LACTOBACILLUS RHAMNOSUS GG 1 CAPSULE. PO SCH (07:57)
[2020-01-06] MEDS: BENZTROPINE MESYLATE 1 MG TABLET PO SCH (07:57)
[2020-01-06] MEDS: levETIRAcetam 500 MG TABLET PO SCH (07:57)
[2020-01-06] MEDS: CALCIUM CARBONATE 500 MG TAB.CHEW PO PRN ×2 (09:47→12:31)
[2020-01-06 09:49] VITALS: BP 120/86
--- NOTE | 2020-01-06 12:07 | PN ---
DATE: SUBJECTIVE: The patient continues to have mild epigastric pain, but no vomiting or heartburn. She continues to have worsening of the tremor of the lips and the hands; apparently, we cut back on Cogentin from 1 mg twice a day to 0.5 three times a day because of generalized weakness and epigastric pain and vomiting. OBJECTIVE: GENERAL: Well-developed, well-nourished female, in no acute distress. VITAL SIGNS: Blood pressure 110/74, respiratory rate 20, pulse is 77 and regular, temperature 98, and oxygen saturation 97% on room air. HEENT: Normocephalic, atraumatic, otherwise unremarkable. NECK: Supple. Negative for carotid bruit, lymphadenopathy or thyromegaly. LUNGS: Clear to A and P. CARDIOVASCULAR: Regular rate and rhythm. Normal S1, S2. There is no S3, S4 or murmur. ABDOMEN: Soft. Bowel sounds positive. EXTREMITIES: Negative for cyanosis, clubbing or edema. NEUROLOGICAL EXAM: Normal mental status and intact cranial nerves. There is no focal motor or sensory deficit. The strength is 4/5 throughout. The patient continues to have a repetitive movement of the lips and hands consistent with tardive dyskinesia. Deep tendon reflexes were symmetric and hypoactive with absent Achilles responses. Gait: The patient uses a walker for ambulation. IMPRESSION: 1. Tardive dyskinesia, probably due to previous atypical antipsychotic medication side effects. 2. Seizure disorder -- stable. 3. Multiple medical problems include anxiety disorders, schizoaffective disorders and bipolar disorder. RECOMMENDATIONS: 1. We will continue with current medical and psychiatric care. 2. We will increase Cogentin to 1 mg twice a day. M Neal SALAZAR MD DR: MIMI/ritika JOB#: [id number] / [id number]
[2020-01-06] MEDS: NORMAL SALINE IV SCH (14:08)
[2020-01-06] MEDS: DAPTOMYCIN IV SCH (14:08)
[2020-01-06] MEDS ORDERED: CLON0.5T4 PO (15:42)
[2020-01-06] MEDS ORDERED: DESV25TA7 PO (15:42)
[2020-01-06] MEDS ORDERED: BENZ1TAB5 PO (15:42)
[2020-01-06] MEDS ORDERED: DIPH25CA58 PO (15:51)
--- NOTE | 2020-01-06 16:27 | DS ---
DATE OF DISCHARGE: 01/06/2020 HOSPITAL COURSE: The patient is a 59-year-old female patient, who was admitted with dysarthria, drooling and tremors. She had slurring of the speech and drooling started about 3 days before admission. She apparently has stopped her Rexulti about 11 days ago. This was thought to have caused the patient's newly developed movement disorder. As her symptoms dramatically worsened, she came to the Emergency Room for evaluation and treatment. Did complain of difficulty, also swallowing, but denied any weakness, tingling, or numbness. Her lab work shows slightly elevated white cell count. Her chemistry showed that her blood sugar is slightly elevated, and she had mild lactic acidosis and slightly impaired kidney function. Her urinalysis is essentially unremarkable. Toxic screen was essentially negative. CT scan of the head showed the patient has no acute intracranial abnormalities and chest x-ray showed no radiographic evidence of acute cardiopulmonary process. She was admitted for further evaluation and treatment. She was seen in consultation by the neurologist as well as the psychiatrist. Her Pristiq was cut down to 25. She was treated initially with Ativan and Benadryl. She was seen by Dr. Lee, who switched her to clonazepam and she did well. Her blood culture has grown Staphylococcus capitis and Staphylococcus epidermidis and she was treated with daptomycin. PHYSICAL EXAMINATION: GENERAL: When I examined her today, she looked well and was clearly in no apparent distress. She was somewhat pale, but no jaundice, cyanosis or thyromegaly. No jugular venous distention. No limb edema. VITAL SIGNS: Her heart rate was 77, blood pressure 120/86, temperature was 99.1, respiratory rate was 16, and oxygen saturation was 99% on room air. HEAD, EYES, EARS, NOSE AND THROAT: Normocephalic, atraumatic. NECK: Supple. HEART: Showed normal first and second heart sounds. No gallop or murmur. CHEST: Clear to auscultation. No crepitation or rhonchi. ABDOMEN: Distended, soft, nontender. NEUROLOGIC: She is definitely awake, alert, responding appropriately. She continued to have mild tremors, but has had no more dysarthria or slurring of speech and no drooling. She was seen also in consultation by the speech therapist who believed that her dysphagia is esophageal rather than oropharyngeal. It transpired that she has had esophageal stricture that required dysphagia dilatation before. As she remained hemodynamically stable and afebrile with normal white cell count, a decision was made to discharge her home. LABORATORY DATA: This morning showed a white cell count of 5400, hemoglobin 12, hematocrit 37, MCV of 96, and platelet count of 129,000. Her chemistry showed a serum sodium of 139, potassium 4.5, chloride 105, bicarbonate 24, anion gap of 10, BUN 7, creatinine 0.9, estimated GFR was 64 mL per minute. Her glucose was 96, calcium was 8.3. Total bilirubin, AST, ALT, alkaline phosphatase were normal. Total protein was 6.1. Albumin was 2.9. DISCHARGE MEDICATIONS: She was discharged home to continue on benztropine 1 mg twice a day, clonazepam 0.5 mg 3 times a day; desvenlafaxine, Pristiq extended release 25 mg once a day; diphenhydramine 50 mg once a day. She should continue also on her levetiracetam 750 mg p.o. at bedtime. The patient was treated with daptomycin. FINAL DISCHARGE DIAGNOSES: 1. Abnormal movement induced by antipsychotic medication, much improved. She is now off her Rexulti and Pristiq was cut down. She is also on clonazepam 0.5 mg 3 times a day and Benadryl 50 mg at bedtime and benztropine 1 mg twice a day. 2. Acute kidney injury, resolved. Her creatinine is down from 1.4 to 0.8. 3. Seizure disorder, for which she is on Keppra. 4. She has dysphagia and possible aspiration pneumonia. In fact, her blood culture has grown gram-positive cocci in clusters identified as Staphylococcus capitis and Staphylococcus epidermidis, which she is now on IV daptomycin. 5. She has had previous cerebrovascular accident with right-sided hemiplegia, aphasia and dysphagia that has mostly resolved. Her dysphagia was felt to be mostly esophageal rather than oropharyngeal. he patient was advised to follow with her psychiatrist and was given a prescription for clonazepam, Pristiq, and Cogentin. She has enough supply of her extended release Keppra. IAN BRENNAN MD DR: JOSE MARTIN/ritika JOB#: [id number] / [id number]
--- NOTE | 2020-01-06 16:38 | DS ---
DATE OF DISCHARGE: HOSPITAL COURSE: I spoke with the microbiology lab at [facility] and they did not do sensitivity as these are contaminant as they were only in 2/4 bottles. The others were negative. I did actually asked him to set the sensitivity and to call me with the results. The patient has already received about 5 days of daptomycin. IAN BRENNAN MD DR: JOSE MARTIN/ritika JOB#: [id number] / [id number]
[2020-01-06 16:57] VITALS: BP 107/71
[2020-01-06] MEDS ORDERED: BENZTROPINE MESYLATE 1 MG TABLET PO SCH (21:00)
== END 2020-01-06 18:04 | disposition home or self-care (01) | DRG 177 ==
LOC: ER 21:04 → ICU 22:25 → OBSVTOIN 01-02 10:50
PROVIDERS: ADMIT Internal Medicine; ATTEND Internal Medicine
DX: J69.0 Pneumonitis due to inhalation of food and vomit (principal); N17.0 Acute kidney failure with tubular necrosis; I69.351 Hemiplegia and hemiparesis following cerebral infarction affecting right dominant side; E87.2 Acidosis; F31.30 Bipolar disorder, current episode depressed, mild or moderate severity, unspecified; G24.01 Drug induced subacute dyskinesia; E78.5 Hyperlipidemia, unspecified; F25.0 Schizoaffective disorder, bipolar type; F41.9 Anxiety disorder, unspecified; G40.909 Epilepsy, unspecified, not intractable, without status epilepticus; I10 Essential (primary) hypertension; I69.320 Aphasia following cerebral infarction; J45.909 Unspecified asthma, uncomplicated; R13.10 Dysphagia, unspecified; T43.505A Adverse effect of unspecified antipsychotics and neuroleptics, initial encounter; Z80.0 Family history of malignant neoplasm of digestive organs; Z80.1 Family history of malignant neoplasm of trachea, bronchus and lung; Z80.6 Family history of leukemia; Z83.3 Family history of diabetes mellitus; Z90.710 Acquired absence of both cervix and uterus; Z88.0 Allergy status to penicillin; Z79.899 Other long term (current) drug therapy; G25.71 Drug induced akathisia; B95.8 Unspecified staphylococcus as the cause of diseases classified elsewhere; Y92.89 Other specified places as the place of occurrence of the external cause
CPT/HCPCS: 36415; 70450; 71045; 80048; 80053; 80307; 80329; 81001; 82550; 82947; 83605; 84443; 84484; 85025; 85027; 85610; 85730; 87040; 87077; 87205; 93005; 96361; 96374; 96375; G0378; G0379; G0480; J0878; J1200; J2060; J2185; J2405; Q0163; 92610; 97110; 97116; 97530; 97535; 99291-25; J7030

== ENCOUNTER 2020-02-17 13:23 | Emergency (ER) | payer MEDICARE ==
[~2020-02-17] VITALS: Ht 162.6 cm; Wt 70.0 kg
[~2020-02-17 13:23] MED LIST: ALPR1TAB6 PO; BENZ1TAB5 PO; BREX2TAB PO; CLON0.5T4 PO; DESV25TA7 PO; DESV50TA12 PO; DIPH25CA58 PO; LEVE750T23 PO
[2020-02-17] MEDS ORDERED: ONDANSETRON PF 4 MG/2 ML VIAL. ONE (14:03)
[2020-02-17 14:05] VITALS: BP 139/67
[2020-02-17] MEDS ORDERED: ONDANSETRON PF 4 MG/2 ML VIAL. IVP ONE (14:15)
[2020-02-17 14:26] LABS: BASO % 0 % (0-3); EOS # 0.2 x10^3/uL (0.0-0.7); EOS % 2 % (0-3); HEMATOCRIT 39.5 % (36.0-47.0); HEMOGLOBIN 12.9 g/dL (12.0-15.5); LYMPH % 18 % (24-48); MEAN CORPUSCULAR HEMOGLOBIN 30 pg (25-35); MEAN CORPUSCULAR HGB CONC 33 g/dL (31-37); MEAN CORPUSCULAR VOLUME 92 fL (79-100); MONO # 0.8 x10^3/uL (0.0-1.1); MONO % 7 % (0-9); NEUT # 8.6 x10^3uL (1.8-7.7); NEUT % 74 % (31-73); PLATELET COUNT 214 x10^3/uL (140-400); RED BLOOD COUNT 4.27 x10^6/uL (3.50-5.40); RED CELL DISTRIBUTION WIDTH 15.2 % (11.5-14.5); WHITE BLOOD COUNT 11.6 x10^3/uL (4.0-11.0)
[2020-02-17 14:35] LABS: CREATININE 1.2 mg/dL (0.6-1.0); POTASSIUM 3.7 mmol/L (3.5-5.1)
[2020-02-17 14:40] LABS: ALBUMIN 3.5 g/dL (3.4-5.0); TOTAL BILIRUBIN 0.6 mg/dL (0.2-1.0)
--- NOTE | 2020-02-17 15:03 | RAD ---
INDICATION: Reason: shortness of breath, cough / Spl. Instructions: / History: COMPARISON: December 31, 2019 FINDINGS: Single view of chest obtained. Stimulator lead again seen projecting over the thoracic spine. Prominence of the pulmonary robert again seen without enlargement of cardiac silhouette. No definite new region of focal consolidation or pulmonary edema. Degenerative changes of spine. IMPRESSION: * No focal airspace consolidation or edema. Electronically signed by: Asif Hinojosa MD (02/17/2020 3:00 PM) [id number]
--- NOTE | 2020-02-17 15:08 | EKG ---
[address] [address] Test Date: 2020-02-17 Test Time: 13:35:48 Pat Name: NORMAN ANGEL Department: Room: Gender: F [employer] Journalist: ADELA : 1960 Requested By: SEVERIANO SANTA Order Number: [id number] Reading MD: Martín Wilson MD Measurements Intervals [place] Rate: 102 P: 43 PA: 118 QRS: -5 QRSD: 72 T: 22 QT: 366 QTc: 482 Interpretive Statements SINUS TACHYCARDIA NON-SPECIFIC ST/T CHANGES Electronically Signed On 02-18-2020 12:38:22 CDT by Martín Wilson MD
--- NOTE | 2020-02-17 16:38 | PHYS DOC ---
Past History Past Medical History: Asthma, Depression, Seizure, Stroke Past Surgical History: Appendectomy, Cholecystectomy, Hysterectomy Additional Past Surgical Histo: bilateral ankle repair, back surgery x7 Alcohol Use: None General Adult EDM: Chief Complaint: FEVER HPI: HPI: 59-year-old female presents with fever, chills, fatigue, body aches, shortness of breath. She has had a cough for several days and her symptoms overall have been getting worse. She wonders about COVID-19, but has no specific COVID-19 exposures. She has been taking [id number] medications for her reported fever. Her temperature on arrival is 99.6. She denies chest pain or diaphoresis. Review of Systems: Review of Systems: Constitutional: Fever and chills Eyes: Denies change in visual acuity HENT: Denies nasal congestion or sore throat Respiratory: Cough with shortness of breath Cardiovascular: Denies chest pain or edema GI: Denies abdominal pain, nausea, diarrhea : Denies dysuria Musculoskeletal: Denies back pain or joint pain Integument: Denies rash Neurologic: Denies headache, focal weakness or sensory changes Endocrine: Denies polyuria or polydipsia Lymphatic: Denies swollen glands Psychiatric: Denies depression or anxiety Heart Score: Risk Factors: Risk Factors: DM, Current or recent (<one month) smoker, HTN, HLP, family history of CAD, obesity. Risk Scores: Score 0 - 3: 2.5% MACE over next 6 weeks - Discharge Home Score 4 - 6: 20.3% MACE over next 6 weeks - Admit for Clinical Observation Score 7 - 10: 72.7% MACE over next 6 weeks - Early Invasive Strategies Current Medications: Current Meds: Current Medications Medications (Trade) Dose Ordered Sig/[facility] Start Time Stop Time Status Last Admin Dose Admin Ondansetron HCl (Zofran) 4 mg 1X ONCE 02/17/20 14:15 02/17/20 14:16 DC 02/17/20 14:07 4 MG Allergies: Allergies: Allergies Coded Allergies Type Severity Reaction Last Updated Verified Penicillins Allergy Intermediate 01/05/20 Yes Physical Exam: PE: Constitutional: Well developed, well nourished, no acute distress, non-toxic appearance. [] HENT: Normocephalic, atraumatic, bilateral external ears normal, oropharynx dry, no oral exudates, nose normal. [] Eyes: PERRLA, EOMI, conjunctiva normal, no discharge. [] Neck: Normal range of motion, no tenderness, supple, no stridor. [] Cardiovascular: Heart rate 105, regular rhythm, no murmur [] Lungs & Thorax: Bilateral breath sounds clear to auscultation [] Abdomen: Bowel sounds normal, soft, no tenderness, no masses, no pulsatile masses. [] Skin: Warm, dry, no erythema, no rash. [] Back: No tenderness, no CVA tenderness. [] Extremities: No tenderness, no cyanosis, no clubbing, ROM intact, no edema. [] Neurologic: Alert and oriented X 3, normal motor function, normal sensory function, no focal deficits noted. [] Psychologic: Affect normal, judgement normal, mood anxious. [] Current Patient Data: Labs: Laboratory Tests Test 02/17/20 13:49 White Blood Count 11.6 x10^3/uL (4.0-11.0) H Red Blood Count 4.27 x10^6/uL (3.50-5.40) Hemoglobin 12.9 g/dL (12.0-15.5) Hematocrit 39.5 % (36.0-47.0) Mean Corpuscular Volume 92 fL (79-100) Mean Corpuscular Hemoglobin 30 pg (25-35) Mean Corpuscular Hemoglobin Concent 33 g/dL (31-37) Red Cell Distribution Width 15.2 % (11.5-14.5) H Platelet Count 214 x10^3/uL (140-400) Neutrophils (%) (Auto) 74 % (31-73) H Lymphocytes (%) (Auto) 18 % (24-48) L Monocytes (%) (Auto) 7 % (0-9) Eosinophils (%) (Auto) 2 % (0-3) Basophils (%) (Auto) 0 % (0-3) Neutrophils # (Auto) 8.6 x10^3uL (1.8-7.7) H Lymphocytes # (Auto) 2.0 x10^3/uL (1.0-4.8) Monocytes # (Auto) 0.8 x10^3/uL (0.0-1.1) Eosinophils # (Auto) 0.2 x10^3/uL (0.0-0.7) Basophils # (Auto) 0.0 x10^3/uL (0.0-0.2) Sodium Level 134 mmol/L (136-145) L Potassium Level 3.7 mmol/L (3.5-5.1) Chloride Level 100 mmol/L (98-107) Carbon Dioxide Level 19 mmol/L (21-32) L Anion Gap 15 (6-14) H Blood Urea Nitrogen 8 mg/dL (7-20) Creatinine 1.2 mg/dL (0.6-1.0) H Estimated GFR (Cockcroft-Gault) 46.0 BUN/Creatinine Ratio 7 (6-20) Glucose Level 114 mg/dL (70-99) H Lactic Acid Level 1.7 mmol/L (0.4-2.0) Calcium Level 9.0 mg/dL (8.5-10.1) Total Bilirubin 0.6 mg/dL (0.2-1.0) Aspartate Amino Transferase (AST) 18 U/L (15-37) Alanine Aminotransferase (ALT) 22 U/L (14-59) Alkaline Phosphatase 93 U/L (46-116) Troponin I Quantitative < 0.017 ng/mL (0-0.055) Total Protein 7.0 g/dL (6.4-8.2) Albumin 3.5 g/dL (3.4-5.0) Albumin/Globulin Ratio 1.0 (1.0-1.7) Vital Signs: Vital Signs Date Time Temp Pulse Resp B/P (MAP) Pulse Ox O2 Delivery O2 Flow Rate FiO2 02/17/20 13:23 99.6 105 40 156/71 (99) 95 Room Air EKG: EKG: Sinus tachycardia, rate 102, normal axis, no ST elevations or depressions. [] Radiology/Procedures: Radiology/Procedures: [] Impressions: INDICATION: Reason: shortness of breath, cough / Spl. Instructions: / History: COMPARISON: December 31, 2019 FINDINGS: Single view of chest obtained. Stimulator lead again seen projecting over the thoracic spine. Prominence of the pulmonary robert again seen without enlargement of cardiac silhouette. No definite new region of focal consolidation or pulmonary edema. Degenerative changes of spine. IMPRESSION: * No focal airspace consolidation or edema. Electronically signed by: Gabriela Hinojosa MD (02/17/2020 3:00 PM) [id number] DICTATED AND SIGNED BY: GABRIELA HINOJOSA MD DATE: 02/17/201499 CC: SEVERIANO SANTA DO; PCP,NO ~ Course & Med Decision Making: Course & Med Decision Making Pertinent Labs and Imaging studies reviewed. (See chart for details) The patient's labs are within normal limits. Her lactic acid is 1.7. I believe the patient is dehydrated and I have given her a liter normal saline. She does not meet admission criteria for COVID-19 at this time. I advised that if she gets worse that she may need to come back for admission. At this time I have ad vised supportive care. She is stable for discharge at this time. [] Dragon Disclaimer: Dragon Disclaimer: This electronic medical record was generated, in whole or in part, using a voice recognition dictation system. Departure Departure: Impression: Primary Impression: Suspected COVID-19 virus infection Disposition: HOME/RESIDENCE PRIOR TO ADM Condition: STABLE Referrals: PCP,REJI (PCP) Additional Instructions: You have been tested for or diagnosed with COVID-19. It is an infection caused by a new type of coronavirus. COVID-19 will cause cold-like or mild flu symptoms in most. It can cause more severe symptoms like problems breathing in some. There is no treatment for COVID-19. The body will clear the infection over time. Self-care will help to ease discomfort. Steps to Take: Self-Care Rest as needed. Healthy habits may help you feel better. Steps include: Choose healthy foods including fruits and vegetables. Drink water throughout the day. Get plenty of sleep each night. If you smoke, try to quit. It may ease breathing. Avoid alcohol. Keep Others Healthy The virus can spread to others. Droplets are released every time you sneeze or cough. The droplets can get into the mouth, nose, or eyes of people near you and lead to infection. To lower the chances of spreading COVID-19 to others: Stay at home until your doctor has said it is safe to leave. If you tested positive this will mean staying isolated until both of the following are true: At least 7 days have passed since the start of illness. You are free of fever for at least 72 hours without the use of medicine. During this time: - Avoid public areas, events, or transportation. Do not return to work or school until your doctor has said it is safe to do so. - Call ahead if you need to go to a medical center. Let them know you may have COVID-19. It will help them guide you where to go. They may also ask you to wear a facemask when you come to the office. - If you call for emergency medical services, let them know you may have COVID- 19. While at home: - Try to avoid close contact with others. Stay about 6 feet away. - If possible, spend most of your time in a separate room from others. - Use a face mask if you will be in close contact with others such as sharing a room or vehicle. - Have someone wipe down common surfaces in the home. Use household dry cell tester every day on areas like doorknobs, counters, or sinks. - Cough or sneeze into a tissue. Throw the tissue away right after use. If a tissue is not available, cough or sneeze into your elbow. - Wash your hands often. Wash them after sneezing or coughing. Use soap and water and wash for at least 20 seconds. Alcohol based hand fish cleaner can be used if soap and water is not available. - Do not prepare food for others. Avoid sharing personal items like forks, spoons, or toothbrushes. - Avoid close contact with pets while you are sick. There is no evidence of the virus passing to pets. This is a safety step until more is known about this virus. Isolation can be frustrating. Social interaction can help. Keep in touch with friends and family through phone and tech options. You can still interact with others in your home, just keep a safe distance of about 6 feet. Follow-up: Your doctors office will check in with you to see if there are any changes in your health. You may be asked to keep track of symptoms to share with them. They will also let you know when you are clear to be in public again. Problems to Look Out For: Contact your doctor if your recovery is not going as you expect. Get emergency care if you have problems such as: - Trouble breathing - Nonstop chest pain or pressure - Changes in awareness, confusion, or problems waking - Lips or face have bluish color - Worsening of symptoms If you think you have an emergency, call for emergency medical services right away. As taken from [facility] Justification of Admission: Justification of Admission: Justification of Admission Dx: N/A SEVERIANO SANTA DO Feb 17, 2020 16:38
--- NOTE | 2020-02-19 09:33 | NUR ---
IP: attempted to notify patient of COVID result, left message to call back.
== END 2020-02-17 17:05 | disposition home or self-care (01) ==
LOC: ER 13:23
DX: R05 Cough (principal); R50.9 Fever, unspecified; R06.02 Shortness of breath; Z20.828 Contact with and (suspected) exposure to other viral communicable diseases; J45.909 Unspecified asthma, uncomplicated; Z86.73 Personal history of transient ischemic attack (TIA), and cerebral infarction without residual deficits; Z88.0 Allergy status to penicillin
CPT/HCPCS: 36415; 71045; 80053; 83605; 84484; 85025; 93005; 96374; 99285; J2405; U0003

== ENCOUNTER 2020-09-12 21:25 | Emergency (ER) | payer MEDICARE ==
[~2020-09-12] VITALS: Ht 157.5 cm; Wt 78.2 kg
[2020-09-12] MEDS ORDERED: ONDANSETRON ODT 4 MG TAB.RAPDIS PO ONE (22:00)
[2020-09-12 22:23] VITALS: BP 152/70
--- NOTE | 2020-09-12 22:25 | PHYS DOC ---
Past History Past Medical History: Asthma, Depression, Seizure, Stroke Past Surgical History: Appendectomy, Cholecystectomy, Hysterectomy Additional Past Surgical Histo: bilateral ankle repair, back surgery x7 Alcohol Use: None Adult General Chief Complaint Chief Complaint: MULTIPLE COMPLAINTS [facility] HPI Patient is a 60-year-old female who presents with a chief complaint of productive cough, runny nose, congestion and body aches for the last couple of days. States she was exposed to a friend who actively has Covid 5 days ago. Denies any recent travel, traumas, fevers, chest pain, abdominal pain, nausea, vomiting, dysuria, diarrhea. Review of Systems Review of Systems Constitutional: Denies fever or chills [] Eyes: Denies change in visual acuity, redness, or eye pain [] HENT: Denies nasal congestion or sore throat [] Respiratory: Denies cough or shortness of breath [] Cardiovascular: No additional information not addressed in HPI [] GI: Denies abdominal pain, nausea, vomiting, bloody stools or diarrhea [] : Denies dysuria or hematuria [] Musculoskeletal: Denies back pain or joint pain [] Integument: Denies rash or skin lesions [] Neurologic: Denies headache, focal weakness or sensory changes [] Endocrine: Denies polyuria or polydipsia [] All other systems were reviewed and found to be within normal limits, except as documented in this note. Current Medications Current Medications Current Medications Medications (Trade) Dose Ordered Sig/[facility] Start Time Stop Time Status Last Admin Dose Admin Ondansetron HCl (Zofran Odt) 8 mg 1X ONCE 09/12/20 22:00 09/12/20 22:01 DC 09/12/20 22:08 8 MG Allergies Allergies Allergies Coded Allergies Type Severity Reaction Last Updated Verified Penicillins Allergy Intermediate 01/05/20 Yes Physical Exam Physical Exam Constitutional: Well developed, well nourished, no acute distress, non-toxic appearance. [] HENT: Normocephalic, atraumatic, bilateral external ears normal, oropharynx moist, no oral exudates, nose normal. [] Eyes: conjunctiva normal, no discharge. [] Neck: Normal range of motion, no tenderness, supple, no stridor. [] Cardiovascular:Heart rate regular rhythm, no murmur [] Lungs & Thorax: Mild bilateral global rhonchi Abdomen: soft, no tenderness, no masses, no pulsatile masses. [] Skin: Warm, dry, no erythema, no rash. [] Extremities: No tenderness, ROM intact, no edema. [] Neurologic: Alert and oriented X 3, no focal deficits noted. [] Psychologic: Affect normal, judgement normal, mood normal. [] EKG EKG Rate of 111, QRS of 76, QTc of 433, no STEMI, troponin normal Radiology/Procedures Radiology/Procedures [] Heart Score C/O Chest Pain: No Risk Factors: Risk Factors: DM, Current or recent (<one month) smoker, HTN, HLP, family history of CAD, obesity. Risk Scores: Risk Factors: DM, Current or recent (<one month) smoker, HTN, HLP, family history of CAD, obesity. Course & Med Decision Making Course & Med Decision Making Patient is a 60-year-old female who presents with productive cough, body aches and nasal congestion/runny nose for 2 days after being exposed to Covid 5 days ago Vital signs not concerning. Physical exam noted above. Patient given cough syrup, Tylenol and ibuprofen. EKG noted above plan not concerning. Troponin not concerning. Laboratory analysis not concerning. Urinalysis not concerning. Chest x-ray not concerning. Discussed all findings with patient and advised that her Covid test would be 24 to 48 hours. Advised on quarantine process and given education. Advised to call primary care physician first thing Monday morning to update on ED visit and set up a follow- up. Gave recommendations for symptom control at home. Advised on return precautions to the ED. Patient grateful, verbalized understanding and agreed with plan of discharge. [] Dragon Disclaimer Dragon Disclaimer This electronic medical record was generated, in whole or in part, using a voice recognition dictation system. Departure Departure: Impression: Primary Impression: Cough Additional Impressions: Nasal congestion Body aches Close exposure to COVID-19 virus Disposition: HOME / SELF CARE / HOMELESS Condition: GOOD Referrals: TAINA KRISHNAN MD (PCP) Additional Instructions: You have been tested for or diagnosed with COVID-19. It is an infection caused by a new type of coronavirus. COVID-19 will cause cold-like or mild flu symptoms in most. It can cause more severe symptoms like problems breathing in some. There is no treatment for COVID-19. The body will clear the infection over time. Self-care will help to ease discomfort. Steps to Take: Self-Care Rest as needed. Healthy habits may help you feel better. Steps include: Choose healthy foods including fruits and vegetables. Drink water throughout the day. Get plenty of sleep each night. If you smoke, try to quit. It may ease breathing. Avoid alcohol. Keep Others Healthy The virus can spread to others. Droplets are released every time you sneeze or cough. The droplets can get into the mouth, nose, or eyes of people near you and lead to infection. To lower the chances of spreading COVID-19 to others: Stay at home until your doctor has said it is safe to leave. If you tested positive this will mean staying isolated until both of the following are true: At least 7 days have passed since the start of illness. You are free of fever for at least 72 hours without the use of medicine. During this time: - Avoid public areas, events, or transportation. Do not return to work or school until your doctor has said it is safe to do so. - Call ahead if you need to go to a medical center. Let them know you may have COVID-19. It will help them guide you where to go. They may also ask you to wear a facemask when you come to the office. - If you call for emergency medical services, let them know you may have COVID- 19. While at home: - Try to avoid close contact with others. Stay about 6 feet away. - If possible, spend most of your time in a separate room from others. - Use a face mask if you will be in close contact with others such as sharing a room or vehicle. - Have someone wipe down common surfaces in the home. Use household marriage and family teacher every day on areas like doorknobs, counters, or sinks. - Cough or sneeze into a tissue. Throw the tissue away right after use. If a tissue is not available, cough or sneeze into your elbow. - Wash your hands often. Wash them after sneezing or coughing. Use soap and water and wash for at least 20 seconds. Alcohol based hand aircraft cabin cleaner can be used if soap and water is not available. - Do not prepare food for others. Avoid sharing personal items like forks, spoons, or toothbrushes. - Avoid close contact with pets while you are sick. There is no evidence of the virus passing to pets. This is a safety step until more is known about this virus. Isolation can be frustrating. Social interaction can help. Keep in touch with friends and family through phone and tech options. You can still interact with others in your home, just keep a safe distance of about 6 feet. Follow-up: Your doctors office will check in with you to see if there are any changes in your health. You may be asked to keep track of symptoms to share with them. They will also let you know when you are clear to be in public again. Problems to Look Out For: Contact your doctor if your recovery is not going as you expect. Get emergency care if you have problems such as: - Trouble breathing - Nonstop chest pain or pressure - Changes in awareness, confusion, or problems waking - Lips or face have bluish color - Worsening of symptoms If you think you have an emergency, call for emergency medical services right away. As taken from [facility] [place] [facility] Problem Qualifiers NOAH DORAN MD Sep 12, 2020 22:25
[2020-09-12 22:27] LABS: BASO % 0 % (0-3); EOS % 1 % (0-3); LYMPH # 1.9 x10^3/uL (1.0-4.8); LYMPH % 28 % (24-48); MEAN CORPUSCULAR HEMOGLOBIN 30 pg (25-35); MEAN CORPUSCULAR HGB CONC 34 g/dL (31-37); MEAN CORPUSCULAR VOLUME 90 fL (79-100); MONO # 0.7 x10^3/uL (0.0-1.1); MONO % 10 % (0-9); NEUT # 4.3 x10^3uL (1.8-7.7); NEUT % 62 % (31-73); PLATELET COUNT 183 x10^3/uL (140-400); RED BLOOD COUNT 4.32 x10^6/uL (3.50-5.40); RED CELL DISTRIBUTION WIDTH 15.7 % (11.5-14.5); WHITE BLOOD COUNT 6.9 x10^3/uL (4.0-11.0)
[2020-09-12 22:33] LABS: CALCIUM 9.7 mg/dL (8.5-10.1); CREATININE 1.1 mg/dL (0.6-1.0); GFR 50.7; POTASSIUM 3.3 mmol/L (3.5-5.1)
[2020-09-12] MEDS ORDERED: ACETAMINOPHEN 500 MG TABLET PO ONE (23:00)
[2020-09-12] MEDS ORDERED: PROMETH/CODEINE 6.25/10MG 5 ML SYRUP. PO ONE (23:00)
[2020-09-12] MEDS ORDERED: IBUPROFEN 600 MG TABLET. PO ONE (23:00)
[2020-09-12 23:07] LABS: CLARITY,URINE CLEAR; COLOR,URINE YELLOW; GLUCOSE,URINE NEG (NEG); NITRITE,URINE NEG (NEG); UROBILINOGEN,URINE 0.2 mg/dL (0.2 mg/dL)
[2020-09-12 23:08] LABS: BACTERIA,URINE 0 /HPF (0-FEW); BILIRUBIN,URINE SMALL (NEG); RBC,URINE 0 /HPF (0-2); SQUAMOUS EPITHELIAL CELL,UR FEW /LPF; WBC,URINE OCC /HPF (0-4)
--- NOTE | 2020-09-12 23:37 | RAD ---
XR CHEST 1V CLINICAL INDICATIONS: Reason: chest pain, COUGH COMPARISON: February 17, 2020. Findings: No acute lung infiltrate or pleural effusion or pulmonary edema or lung mass or pneumothora x is seen. The heart size, pulmonary vasculature, mediastinum and both robert are unremarkable. IMPRESSION: No acute radiographic abnormality is seen. Electronically signed by: Julio C Magana MD (09/12/2020 11:35 PM) [id number]
[2020-09-12 23:42] LABS: PLT ESTIMATE ADEQUATE (ADEQUATE)
--- NOTE | 2020-09-13 12:43 | EKG ---
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
--- NOTE | 2020-09-14 13:21 | NUR ---
IP note: Positive COVID-19 PCR testing results rec'd. Attempt to contact pt at home# [phone] unsuccessful, message left requesting return call on voicemail with patient's name stated. l
== END 2020-09-12 23:42 | disposition home or self-care (01) ==
LOC: ER 21:25
DX: R05 Cough (principal); Z20.822 Contact with and (suspected) exposure to COVID-19; R09.81 Nasal congestion; M79.10 Myalgia, unspecified site; J45.909 Unspecified asthma, uncomplicated; Z86.73 Personal history of transient ischemic attack (TIA), and cerebral infarction without residual deficits; Z88.0 Allergy status to penicillin
CPT/HCPCS: 36415; 71045; 80048; 81001; 84484; 85025; 93005; 99285; C9803; Q0162; U0003; U0005; 99284

== ENCOUNTER 2021-01-24 22:06 | Emergency (ER) | payer MEDICARE, OTHER ==
[~2021-01-24] VITALS: Ht 157.5 cm; Wt 79.2 kg
[2021-01-24] MEDS ORDERED: ONDANSETRON PF 4 MG/2 ML VIAL. ONE (22:23)
[2021-01-24 22:37] LABS: BASO # 0.1 x10^3/uL (0.0-0.2); BASO % 1 % (0-3); EOS # 0.3 x10^3/uL (0.0-0.7); EOS % 3 % (0-3); HEMATOCRIT 31.4 % (36.0-47.0); HEMOGLOBIN 10.2 g/dL (12.0-15.5); LYMPH # 2.4 x10^3/uL (1.0-4.8); LYMPH % 25 % (24-48); MEAN CORPUSCULAR HEMOGLOBIN 26 pg (25-35); MEAN CORPUSCULAR HGB CONC 32 g/dL (31-37); MEAN CORPUSCULAR VOLUME 81 fL (79-100); MONO # 0.7 x10^3/uL (0.0-1.1); MONO % 7 % (0-9); NEUT # 6.2 x10^3uL (1.8-7.7); NEUT % 64 % (31-73); PLATELET COUNT 338 x10^3/uL (140-400); RED CELL DISTRIBUTION WIDTH 15.8 % (11.5-14.5); WHITE BLOOD COUNT 9.6 x10^3/uL (4.0-11.0)
--- NOTE | 2021-01-24 22:37 | EKG ---
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
[2021-01-24 22:46] LABS: CALCIUM 8.4 mg/dL (8.5-10.1); CREATININE 1.1 mg/dL (0.6-1.0); GFR 50.7
[2021-01-24] MEDS ORDERED: ASPIRIN CHEWABLE 81 MG TABLET. PO ONE (23:15)
[2021-01-24] MEDS ORDERED: ACETAMINOPHEN 500 MG TABLET PO ONE (23:15)
[2021-01-24] MEDS ORDERED: NITROGLYCERIN SUBLINGUAL 0.4 MG BOTTLE OF 25. SL PRN (23:15)
--- NOTE | 2021-01-24 23:23 | RAD ---
Exam: Chest one view INDICATION: Shortness of breath TECHNIQUE: Frontal view of the chest Comparisons: 09/12/2020 FINDINGS: The cardiomediastinal silhouette and pulmonary vessels are within normal limits. The lung and pleural spaces are clear. IMPRESSION: No acute cardiopulmonary process. Electronically signed by: Gbaino Rios MD (01/24/2021 11:21 PM) CHRISTOPHER
--- NOTE | 2021-01-25 00:28 | PHYS DOC ---
Past History Past Medical History: Anxiety, Depression, Stroke Past Surgical History: Appendectomy, Cholecystectomy, Hysterectomy Additional Past Surgical Histo: bilateral ankle repair, back surgery x7 Alcohol Use: None Adult General Chief Complaint Chief Complaint: CHEST PAIN HPI HPI Patient is a 60-year-old female with a past medical history significant for COPD who presents with a chief complaint of productive cough and sharp pleuritic chest pain that started 3 days ago, intermittent, centralized with no radiation. States that deep breathing does make it worse. Denies any actual dyspnea on exertion, orthopnea, PND or edema. States she had Covid 2 months ago and since then has had her vaccinations. Denies any recent traumas, travels, fevers, abdominal pain, nausea, vomiting, dysuria, hematuria or blood in the stool. Review of Systems Review of Systems Review of systems otherwise unremarkable except noted in HPI Current Medications Current Medications Current Medications Medications (Trade) Dose Ordered Sig/Johny Start Time Stop Time Status Last Admin Dose Admin Acetaminophen (Tylenol) 1,000 mg 1X ONCE 01/24/21 23:15 01/24/21 23:16 DC 01/24/21 23:16 1,000 MG Aspirin (Aspirin Chewable) 324 mg 1X ONCE 01/24/21 23:15 01/24/21 23:16 DC 01/24/21 23:14 324 MG Fentanyl Citrate (Fentanyl 2ml Vial) 50 mcg 1X ONCE 01/24/21 23:15 01/24/21 23:16 DC 01/24/21 23:17 50 MCG Nitroglycerin (Nitrostat) 0.4 mg PRN Q5MIN PRN 01/24/21 23:15 01/24/21 23:15 0.4 MG Ondansetron HCl (Zofran) 4 mg STK-MED ONCE 01/24/21 22:23 01/24/21 22:23 DC Allergies Allergies Allergies Coded Allergies Type Severity Reaction Last Updated Verified Penicillins Allergy Intermediate 01/05/20 Yes Physical Exam Physical Exam Constitutional: Well developed, well nourished, no acute distress, non-toxic appearance. [] HENT: Normocephalic, atraumatic, bilateral external ears normal, oropharynx moist, no oral exudates, nose normal. [] Eyes: conjunctiva normal, no discharge. [] Neck: Normal range of motion, no tenderness, supple, no stridor. [] Cardiovascular: Sinus tachycardia Lungs & Thorax: Global bilateral mild rhonchi Abdomen: soft, no tenderness, no masses, no pulsatile masses. [] Skin: Warm, dry, no erythema, no rash. [] Back: No tenderness, no CVA tenderness. [] Extremities: No tenderness, no cyanosis, no clubbing, ROM intact, no edema. [] Neurologic: Alert and oriented X 3, no focal deficits noted. [] Psychologic: Affect normal, judgement normal, mood normal. [] Current Patient Data Vital Signs Vital Signs Date Time Temp Pulse Resp B/P (MAP) Pulse Ox O2 Delivery O2 Flow Rate FiO2 01/25/21 00:00 89 17 120/67 (84) 98 01/24/21 23:17 Room Air 01/24/21 22:14 98.0 Lab Results Laboratory Tests Test 01/24/21 22:21 01/24/21 23:38 White Blood Count 9.6 x10^3/uL (4.0-11.0) Red Blood Count 3.90 x10^6/uL (3.50-5.40) Hemoglobin 10.2 g/dL (12.0-15.5) L Hematocrit 31.4 % (36.0-47.0) L Mean Corpuscular Volume 81 fL (79-100) Mean Corpuscular Hemoglobin 26 pg (25-35) Mean Corpuscular Hemoglobin Concent 32 g/dL (31-37) Red Cell Distribution Width 15.8 % (11.5-14.5) H Platelet Count 338 x10^3/uL (140-400) Neutrophils (%) (Auto) 64 % (31-73) Lymphocytes (%) (Auto) 25 % (24-48) Monocytes (%) (Auto) 7 % (0-9) Eosinophils (%) (Auto) 3 % (0-3) Basophils (%) (Auto) 1 % (0-3) Neutrophils # (Auto) 6.2 x10^3uL (1.8-7.7) Lymphocytes # (Auto) 2.4 x10^3/uL (1.0-4.8) Monocytes # (Auto) 0.7 x10^3/uL (0.0-1.1) Eosinophils # (Auto) 0.3 x10^3/uL (0.0-0.7) Basophils # (Auto) 0.1 x10^3/uL (0.0-0.2) Sodium Level 143 mmol/L (136-145) Potassium Level 3.0 mmol/L (3.5-5.1) L Chloride Level 106 mmol/L (98-107) Carbon Dioxide Level 19 mmol/L (21-32) L Anion Gap 18 (6-14) H Blood Urea Nitrogen 7 mg/dL (7-20) Creatinine 1.1 mg/dL (0.6-1.0) H Estimated GFR (Cockcroft-Gault) 50.7 Glucose Level 126 mg/dL (70-99) H Calcium Level 8.4 mg/dL (8.5-10.1) L Troponin I Quantitative < 0.017 ng/mL (0-0.055) D-Dimer (Brenda) 1.40 mg/L (0.00-0.50) H EKG EKG Rate of 81, QRS of 86, QTc of 465, no STEMI [] Radiology/Procedures Radiology/Procedures []m: Chest one view INDICATION: Shortness of breath TECHNIQUE: Frontal view of the chest Comparisons: 09/12/2020 FINDINGS: The cardiomediastinal silhouette and pulmonary vessels are within normal limits. The lung and pleural spaces are clear. IMPRESSION: No acute cardiopulmonary process. Electronically signed by: Gabino Rios MD (01/24/2021 11:21 PM) [facility] CT angiogram of the chest with contrast: Reason for examination: Chest pain with elevated d-dimer. Helical images were obtained through the chest with intravenous administration of 75 cc Omnipaque 350 using PE protocol. 3-D MIPS reconstruction was performed in sagittal and coronal planes. Exposure: One or more of the following individualized dose reduction techniques were utilized for this examination: 1. Automated exposure control 2. Adjustment of the mA and/or kV according to patient size 3. Use of iterative reconstruction technique. No abnormality seen at the thyroid gland. The trachea and mainstem bronchi show no intraluminal lesions. No abnormality is seen at the esophagus. There is a moderate size hiatal hernia. The thoracic aorta is normal course and caliber with no aneurysmal dilatation or dissection. The heart size is borderline enlarged with no pericardial effusion. No pulmonary embolus is evident. The lung lopez show no consolidated infiltrates or pleural effusions and no pneumothorax is seen. There is a small 1.7 cm hypodense lesion in the right lobe of liver consistent with a small cyst. No abnormality seen at the spleen, adrenal glands or pancreas. Gallbladder surgically absent. No acute bony abnormalities are seen in the thorax. TENS unit is present at the mid thoracic spine. IMPRESSION: Moderate size hiatal hernia. Borderline cardiomegaly. No pulmonary embolus. 1.7 cm cystic lesion in the right lobe of the liver. Electronically signed by: Mayra Esteban MD (01/25/2021 2:28 AM) [facility] Heart Score C/O Chest Pain: Yes HEART Score for Chest Pain: HEART Score for Chest Pain Response (Comments) Value History Slighlty/Non-Suspicious 0 ECG Normal 0 Age >45 - < 65 1 Risk Factors 1 or 2 Risk Factors 1 Troponin < Normal Limit 0 Total 2 Risk Factors: Risk Factors: DM, Current or recent (<one month) smoker, HTN, HLP, family history of CAD, obesity. Risk Scores: Risk Factors: DM, Current or recent (<one month) smoker, HTN, HLP, family history of CAD, obesity. Course & Med Decision Making Course & Med Decision Making Patient is a 60-year-old female who presents with pleuritic chest pain and shortness of breath Vital signs notable for tachycardia and hypertension. Physical exam noted above. EKG noted above with sinus tachycardia and no STEMI. Troponin normal. Given pain medicine. Given nausea medicine. Given pain medicine and nausea medicine. Given aspirin and nitroglycerin. Laboratory analysis notable for mild normocytic anemia, hypokalemia which was replaced in the ED and elevated D-dimer. Chest x-ray not concerning. CT of the chest with no pulmonary embolism, no pneumothorax. On reassessment patient stated she was ready to be discharged home and was feeling better. Discussed all findings with patient. Discussed management at home. Advised to follow-up with primary care physician as soon as you can to set up a post ER follow-up visit. Gave strict return precautions to the ED. Patient grateful, verbalized understanding and agreed with plan of discharge. Dragon Disclaimer Dragon Disclaimer This electronic medical record was generated, in whole or in part, using a voice recognition dictation system. Departure Departure: Impression: Primary Impression: Chest pain Disposition: HOME / SELF CARE / HOMELESS Condition: GOOD Referrals: TAINA KRISHNAN MD (PCP) Patient Instructions: Chest Pain (Nonspecific) Additional Instructions: Thank you for coming into the emergency department tonight and allowing us to take care of you. Please read the attached information above to go back over some of the things we discussed. Please be sure to take all your medicines as prescribed. Please follow-up as soon as you can with your primary care physician to update on ED visit and set up a post ER follow-up visit. Please come back to the ED with new or concerning symptoms as discussed. NOAH DORAN MD Jan 25, 2021 00:28
[2021-01-25] MEDS ORDERED: IOHEXOL 350 MG/ML 100 ML VIAL. IV ONE (00:30)
[2021-01-25] MEDS ORDERED: CONTRAST GIVEN. MC PRN (00:45)
[2021-01-25] MEDS ORDERED: POTASSIUM CHLORIDE 20 MEQ TABLET.ER. PO ONE (01:00)
[2021-01-25] MEDS ORDERED: diphenhydrAMINE 50 MG/ML VIAL ONE (01:11)
[2021-01-25] MEDS ORDERED: diphenhydrAMINE 50 MG/ML VIAL IVP ONE (01:15)
[2021-01-25] MEDS ORDERED: KETOROLAC 15 MG/ML VIAL. IVP ONE (01:15)
--- NOTE | 2021-01-25 02:31 | RAD ---
CT angiogram of the chest with contrast: Reason for examination: Chest pain with elevated d-dimer. Helical images were obtained through the chest with intravenous administration of 75 cc Omnipaque 350 using PE protocol. 3-D MIPS reconstruction was performed in sagittal and coronal planes. Exposure: One or more of the following individualized dose reduction techniques were utilized for thi s examination: 1. Automated exposure control 2. Adjustment of the mA and/or kV according to patient size 3. Use of iterative reconstruction technique. No abnormality seen at the thyroid gland. The trachea and mainstem bronchi show no intraluminal lesio ns. No abnormality is seen at the esophagus. There is a moderate size hiatal hernia. The thoracic aor ta is normal course and caliber with no aneurysmal dilatation or dissection. The heart size is border line enlarged with no pericardial effusion. No pulmonary embolus is evident. The lung lopez show no consolidated infiltrates or pleural effusions and no pneumothorax is seen. There is a small 1.7 cm hypodense lesion in the right lobe of liver consistent with a small cyst. No abnormality seen at the spleen, adrenal glands or pancreas. Gallbladder surgically absent. No acute b rick abnormalities are seen in the thorax. TENS unit is present at the mid thoracic spine. IMPRESSION: Moderate size hiatal hernia. Borderline cardiomegaly. No pulmonary embolus. 1.7 cm cystic lesion in the right lobe of the liver. Electronically signed by: Mayra Esteban MD (01/25/2021 2:28 AM) [facility]
[2021-01-25 02:37] VITALS: BP 102/69
--- NOTE | 2021-01-25 03:55 | EKG ---
[address] [address] Test Date: 2021-01-25 Test Time: 01:11:55 Pat Name: NORMAN ANGEL Department: Room: Gender: F Pediatric Care Coordinator: SANIA : 1960 Requested By: NOAH DORAN Order Number: [id number] Reading MD: Measurements Intervals [place] Rate: 81 P: 34 [place]: 122 QRS: -6 QRSD: 86 T: 50 QT: 400 QTc: 465 Interpretive Statements SINUS RHYTHM LEFTWARD AXIS S1,S2,S3 PATTERN ST & T ABNORMALITY, CONSIDER INFERIOR ISCHEMIA OR LEFT VENTRICULAR STRAIN T ABNORMALITY IN HIGH LATERAL LEADS ABNORMAL ECG RI6.02 No previous ECG available for comparison
[2021-02-16] MEDS ORDERED: FERR325T72 PO (13:02)
[2021-02-16] MEDS ORDERED: PANT40TA6 PO (13:02)
== END 2021-01-25 02:44 | disposition home or self-care (01) ==
LOC: ER 22:06
DX: R07.81 Pleurodynia (principal); J44.9 Chronic obstructive pulmonary disease, unspecified; F41.9 Anxiety disorder, unspecified; F32.9 Major depressive disorder, single episode, unspecified; Z20.822 Contact with and (suspected) exposure to COVID-19; Z86.73 Personal history of transient ischemic attack (TIA), and cerebral infarction without residual deficits; Z88.0 Allergy status to penicillin
CPT/HCPCS: 36415; 71045; 71275; 80048; 84484; 85025; 85379; 87426; 93005; 96374; 96375; 96376; 99285; C9803; J1200; J1885; J3010; Q9967; U0003

== ENCOUNTER 2021-02-12 11:53 | Inpatient (IN) | payer MEDICARE ==
[~2021-02-12] VITALS: Ht 162.6 cm; Wt 71.0 kg
[2021-02-12] MEDS ORDERED: ASPIRIN CHEWABLE 81 MG TABLET. PO ONE (12:15)
[2021-02-12] MEDS ORDERED: IV NORMAL SALINE 1,000ML 1,000 ML IV SCH (12:15)
[2021-02-12] MEDS: MORPHINE SULFATE 4 MG/ML DISP.SYRIN. IV/SQ PRN ×3 (12:17→21:24)
[2021-02-12] MEDS ORDERED: ONDANSETRON PF 4 MG/2 ML VIAL. ONE (12:19)
--- NOTE | 2021-02-12 12:34 | RAD ---
EXAM: Chest, single view. HISTORY: Chest pain. COMPARISON: 01/24/2021 FINDINGS: A frontal view of the chest is obtained. There is no infiltrate, pleural effusion or pneumo thorax. The heart is normal in size. There is a moderate hiatal hernia. There are dorsal column stimu lator leads overlying the mid thoracic spine. IMPRESSION: No acute pulmonary finding. Electronically signed by: Meka Banerjee MD (02/12/2021 12:32 PM) [facility]
[2021-02-12 12:39] LABS: BASO # 0.1 x10^3/uL (0.0-0.2); BASO % 1 % (0-3); EOS # 0.3 x10^3/uL (0.0-0.7); EOS % 4 % (0-3); HEMATOCRIT 30.1 % (36.0-47.0); HEMOGLOBIN 9.5 g/dL (12.0-15.5); LYMPH # 1.6 x10^3/uL (1.0-4.8); LYMPH % 19 % (24-48); MEAN CORPUSCULAR HEMOGLOBIN 25 pg (25-35); MEAN CORPUSCULAR HGB CONC 32 g/dL (31-37); MEAN CORPUSCULAR VOLUME 78 fL (79-100); MONO # 0.5 x10^3/uL (0.0-1.1); MONO % 6 % (0-9); NEUT # 5.6 x10^3uL (1.8-7.7); NEUT % 70 % (31-73); PLATELET COUNT 267 x10^3/uL (140-400); RED BLOOD COUNT 3.84 x10^6/uL (3.50-5.40); RED CELL DISTRIBUTION WIDTH 15.2 % (11.5-14.5); WHITE BLOOD COUNT 8.1 x10^3/uL (4.0-11.0)
[2021-02-12] MEDS ORDERED: ONDANSETRON PF 4 MG/2 ML VIAL. IVP ONE (12:45)
[2021-02-12 12:47] LABS: GFR 56.6; POTASSIUM 3.5 mmol/L (3.5-5.1)
--- NOTE | 2021-02-12 12:58 | PHYS DOC ---
Past History Past Medical History: Anxiety, Depression, Stroke (MARY MORATAYA APRN) Past Surgical History: Appendectomy, Cholecystectomy, Hysterectomy Additional Past Surgical Histo: bilateral ankle repair, back surgery x7 (MARY MORATAYA APRN) Alcohol Use: None (MARY MORATAYA APRN) General Adult EDM: Chief Complaint: CHEST PAIN HPI: HPI: Patient is a 60-year-old female who presents with left-sided chest pain that radiates into her arm and left armpit. Patient also reports nausea and vomiting. Patient states "I was at Dr. Nur's office this morning being seen after I passed out a couple days ago at home". "While I was there I started having chest pain and was sent to the ER". Patient denies shortness of breath, dizziness. Rating pain 8/10. Denies taking anything prior to arrival. Patient has history of anxiety, depression, CVA. (MARY MORATAYA APRN) Review of Systems: Review of Systems: ROS At least 10 ROS systems have been reviewed and are negative except as documented in the HPI. General: Negative except as outlined in HPI above. Skin: Negative except as outlined in HPI above. HEENT: Negative except as outlined in HPI above. Neck: Negative except as outlined in HPI above. Respiratory: Negative except as outlined in HPI above.. Cardiovascular: Negative except as outlined in HPI above. Abdomen: Negative except as outlined in HPI above. : Negative except as outlined in HPI above. Back/MSK: Negative except as outlined in HPI above. Neuro: Negative except as outlined in HPI above. Psych: Negative except as outlined in HPI above. (MARY MORATAYA APRN) Current Medications: Current Meds: Current Medications Medications (Trade) Dose Ordered Sig/Johny Start Time Stop Time Status Last Admin Dose Admin Aspirin (Aspirin Chewable) 324 mg 1X ONCE 02/12/21 12:15 02/12/21 12:16 DC 02/12/21 12:16 324 MG Morphine Sulfate (Morphine 4mg Syringe) 4 mg 1X ONCE 02/12/21 13:00 02/12/21 13:01 Ondansetron HCl (Zofran) 4 mg 1X ONCE 02/12/21 12:45 02/12/21 12:50 DC 02/12/21 12:25 4 MG Sodium Chloride 1,000 ml @ 1,000 mls/hr Q1H 02/12/21 12:15 02/12/21 13:14 02/12/21 12:17 1,000 MLS/HR (MARY MORATAYA APRN) Allergies: Allergies: Allergies Coded Allergies Type Severity Reaction Last Updated Verified Penicillins Allergy Intermediate 02/12/21 Yes (MARY MORATAYA APRN) Physical Exam: PE: Constitutional: Well developed, well nourished, no acute distress, non-toxic appearance. [] HENT: Normocephalic, atraumatic, bilateral external ears normal, oropharynx moist, no oral exudates, nose normal. [] Eyes: PERRLA, EOMI, conjunctiva normal, no discharge. [] Neck: Normal range of motion, no tenderness, supple, no stridor. [] Cardiovascular:Heart rate regular rhythm, no murmur [] Lungs & Thorax: Bilateral breath sounds clear to auscultation [] Abdomen: Bowel sounds normal, soft, no tenderness, no masses, no pulsatile masses. [] Skin: Warm, dry, no erythema, no rash. [] Back: No tenderness, no CVA tenderness. [] Extremities: No tenderness, no cyanosis, no clubbing, ROM intact, no edema. [] Neurologic: Alert and oriented X 3, normal motor function, normal sensory function, no focal deficits noted. [] Psychologic: Affect normal, judgement normal, mood normal. [] (MARY MORATAYA APRN) Current Patient Data: Labs: Laboratory Tests Test 02/12/21 12:13 White Blood Count 8.1 x10^3/uL (4.0-11.0) Red Blood Count 3.84 x10^6/uL (3.50-5.40) Hemoglobin 9.5 g/dL (12.0-15.5) L Hematocrit 30.1 % (36.0-47.0) L Mean Corpuscular Volume 78 fL (79-100) L Mean Corpuscular Hemoglobin 25 pg (25-35) Mean Corpuscular Hemoglobin Concent 32 g/dL (31-37) Red Cell Distribution Width 15.2 % (11.5-14.5) H Platelet Count 267 x10^3/uL (140-400) Neutrophils (%) (Auto) 70 % (31-73) Lymphocytes (%) (Auto) 19 % (24-48) L Monocytes (%) (Auto) 6 % (0-9) Eosinophils (%) (Auto) 4 % (0-3) H Basophils (%) (Auto) 1 % (0-3) Neutrophils # (Auto) 5.6 x10^3uL (1.8-7.7) Lymphocytes # (Auto) 1.6 x10^3/uL (1.0-4.8) Monocytes # (Auto) 0.5 x10^3/uL (0.0-1.1) Eosinophils # (Auto) 0.3 x10^3/uL (0.0-0.7) Basophils # (Auto) 0.1 x10^3/uL (0.0-0.2) Prothrombin Time 9.9 SEC (9.4-11.4) Prothrombin Time INR 1.0 (0.9-1.1) Activated Partial Thromboplast Time 24 SEC (23-33) Sodium Level 138 mmol/L (136-145) Potassium Level 3.5 mmol/L (3.5-5.1) Chloride Level 104 mmol/L (98-107) Carbon Dioxide Level 19 mmol/L (21-32) L Anion Gap 15 (6-14) H Blood Urea Nitrogen 13 mg/dL (7-20) Creatinine 1.0 mg/dL (0.6-1.0) Estimated GFR (Cockcroft-Gault) 56.6 BUN/Creatinine Ratio 13 (6-20) Glucose Level 96 mg/dL (70-99) Calcium Level 9.0 mg/dL (8.5-10.1) Magnesium Level Pending Total Bilirubin Pending Aspartate Amino Transferase (AST) Pending Alanine Aminotransferase (ALT) Pending Alkaline Phosphatase Pending UO-Qel-J-Type Natriuretic Peptide Pending Total Protein Pending Albumin Pending Albumin/Globulin Ratio Pending Vital Signs: Vital Signs Date Time Temp Pulse Resp B/P (MAP) Pulse Ox O2 Delivery O2 Flow Rate FiO2 02/12/21 12:17 22 100 02/12/21 11:55 98.3 83 156/75 (102) Room Air (MARY MORATAYA APRN) EKG: EKG: [] Sinus rhythm. Heart rate [address] elevation or depression. Read by Dr. Mendiola at 1250 (MARY MORATAYA APRN) Radiology/Procedures: Radiology/Procedures: []EXAM: Chest, single view. HISTORY: Chest pain. COMPARISON: 01/24/2021 FINDINGS: A frontal view of the chest is obtained. There is no infiltrate, pleural effusion or pneumothorax. The heart is normal in size. There is a moderate hiatal hernia. There are dorsal column stimulator leads overlying the mid thoracic spine. IMPRESSION: No acute pulmonary finding. Electronically signed by: Mkea Manzano MD (02/12/2021 12:32 PM) [facility] DICTATED AND SIGNED BY: MEKA MANZANO MD DATE: 02/12/21 1232 (MARY MORATAYA APRN) Heart Score: C/O Chest Pain: Yes HEART Score for Chest Pain: HEART Score for Chest Pain Response (Comments) Value History Moderately Suspicious 1 ECG Normal 0 Age >45 - < 65 1 Risk Factors >3 Risk Factors or Hx CAD 2 Troponin < Normal Limit 0 Total 4 Risk Factors: Risk Factors: DM, Current or recent (<one month) smoker, HTN, HLP, family history of CAD, obesity. Risk Scores: Score 0 - 3: 2.5% MACE over next 6 weeks - Discharge Home Score 4 - 6: 20.3% MACE over next 6 weeks - Admit for Clinical Observation Score 7 - 10: 72.7% MACE over next 6 weeks - Early Invasive Strategies (MARY MORATAYA APRN) Course & Med Decision Making: Course & Med Decision Making Pertinent Labs and Imaging studies reviewed. (See chart for details) [] 60-year-old female presents with left-sided chest pain that radiates down her left arm and armpit. Patient also has been vomiting. Symptoms started this morning when she was at Dr. Nur's office being seen for a syncopal episode at home a few days ago. Patient given 4 mg Zofran for nausea. 4 mg of morphine for discomfort. 324 aspirin. Upon reassessment of pain patient states that she is still in pain. Patient given second dose, 4 mg of morphine. All labs unremarkable. Initial troponin is negative. Due to patient's recent syncopal episode and past cardiac history patient should stay for observation. Heart score of 4. I spoke with Dr. Nur, who is willing to accept patient at [facility] for observation on telemetry. Discussed results with patient. (MARY MORATAYA APRN) Dragon Disclaimer: Dragon Disclaimer: This electronic medical record was generated, in whole or in part, using a voice recognition dictation system. (MARY MORATAYA APRN) Departure Departure: Impression: Primary Impression: Chest pain Qualified Codes: R07.9 - Chest pain, unspecified Additional Impression: Nausea & vomiting Qualified Codes: R11.2 - Nausea with vomiting, unspecified Disposition: ADMITTED INPATIENT Admitting Physician: Taina Krishnan (MARY MORATAYA APRN) Condition: STABLE Referrals: TAINA KRISHNAN MD (PCP) Attending Signature Attending Signature I have reviewed the PA/FIXTURE FABRICATOR REPAIRER's note and plan of care. I was available for co nsultation as needed during the patient's visit in the emergency department. I agree with the clinical impression, plan, and disposition. (ANASTACIA MENDIOLA DO) MARY MORATAYA APRN Feb 12, 2021 12:58 ANASTACIA MENDIOLA DO Feb 12, 2021 21:29
[2021-02-12 13:00] LABS: ALBUMIN 3.4 g/dL (3.4-5.0); ALBUMIN/GLOBULIN RATIO 1.1 (1.0-1.7); MAGNESIUM 1.8 mg/dL (1.8-2.4); TOTAL BILIRUBIN 0.2 mg/dL (0.2-1.0); TOTAL PROTEIN 6.5 g/dL (6.4-8.2)
[2021-02-12] MEDS ORDERED: MORPHINE SULFATE 4 MG/ML DISP.SYRIN. IV ONE (13:00)
[2021-02-12 17:19] VITALS: BP 108/70
[2021-02-12 17:57] LABS: BACTERIA,URINE 0 /HPF (0-FEW); BILIRUBIN,URINE NEG (NEG); CLARITY,URINE CLEAR; COLOR,URINE YELLOW; GLUCOSE,URINE NEG (NEG); NITRITE,URINE NEG (NEG); RBC,URINE 0 /HPF (0-2); SQUAMOUS EPITHELIAL CELL,UR MOD /LPF; UROBILINOGEN,URINE 0.2 mg/dL (0.2 mg/dL); WBC,URINE 0 /HPF (0-4)
--- NOTE | 2021-02-12 18:10 | NUR ---
pt admitted to room 113. pt oriented to room, tele applied. dinner tray ordered.
--- NOTE | 2021-02-12 19:11 | EKG ---
[address] [address] Test Date: 2021-02-12 Test Time: 12:01:50 Pat Name: NORMAN ANGEL Department: Room: Gender: F Press Brake Operator: KATHY : 1960 Requested By: MARY MORATAYA Order Number: [id number] Reading MD: Measurements Intervals [place] Rate: 78 P: 77 [place]: 130 QRS: 5 QRSD: 80 T: 42 QT: 402 QTc: 462 Interpretive Statements SINUS RHYTHM ATRIAL ESCAPE COMPLEX(ES) INTERPOLATED ATRIAL PREMATURE COMPLEX(ES) NO SPECIFIC ECG ABNORMALITIES RI6.02 No previous ECG available for comparison
--- NOTE | 2021-02-12 19:12 | EKG ---
[address] [address] Test Date: 2021-02-12 Test Time: 12:35:03 Pat Name: NORMAN ANGEL Department: Room: Gender: F Curam Developer: KATHY : 1960 Requested By: MARY MORATAYA Order Number: [id number] Reading MD: Measurements Intervals [place] Rate: 75 P: 56 TN: 132 QRS: 21 QRSD: 80 T: 41 QT: 426 QTc: 479 Interpretive Statements SINUS RHYTHM ATRIAL PREMATURE COMPLEX(ES) PROLONGED QT NO SPECIFIC ECG ABNORMALITIES RI6.02 No previous ECG available for comparison
[2021-02-12] MEDS: BENZTROPINE MESYLATE 1 MG TABLET PO SCH (21:14)
[2021-02-12] MEDS: levETIRAcetam 250 MG TABLET PO SCH (21:14)
[2021-02-12] MEDS: diphenhydrAMINE HCL 25 MG CAPSULE PO SCH (21:14)
[2021-02-12] MEDS: clonazePAM 0.5 MG TABLET PO SCH (21:14)
[2021-02-12 23:18] VITALS: BP 116/81
[2021-02-13] MEDS: MORPHINE SULFATE 4 MG/ML DISP.SYRIN. IV/SQ PRN ×2 (05:30→08:16)
--- NOTE | 2021-02-13 05:47 | NUR ---
Pt slept lightly off and on through the night. Pt expresses "pressure" pain 8-10/10 in her left anterior chest. Later in the night, pain was expressed to be mostly in the throat/base of neck, as something pressing on the throat. Pt states the morphine "isn't doing any good," and that swallowing some honey on a spoon soothes it and drinking warm tea with honey following the spoonful makes the pain go away. Will continue to monitor.
[2021-02-13 05:51] VITALS: BP 100/65
[2021-02-13] MEDS: clonazePAM 0.5 MG TABLET PO SCH ×3 (08:16→21:02)
[2021-02-13] MEDS: BENZTROPINE MESYLATE 1 MG TABLET PO SCH ×2 (08:16→21:02)
[2021-02-13] MEDS ORDERED: DESVENLAFAXINE 50 MG TAB.ER.24H. PO SCH (09:00)
[2021-02-13] MEDS ORDERED: FLU VACC QUAD 21-22 (6MOS+) PF 0.5 ML SYRINGE. VAX IM ONE (09:00)
--- NOTE | 2021-02-13 10:00 | NUR ---
CONSULT FOR CARDIOLOGY HAS BEEN ORDERED. DR BRICEÑO WAS ON THE FLOOR THIS AM AND WAS NOTIFIED ABOUT NEW CONSULT.
[2021-02-13] MEDS: CALCIUM CARBONATE 500 MG TAB.CHEW PO PRN ×2 (10:09→21:03)
[2021-02-13 10:40] VITALS: BP 95/61
[2021-02-13] MEDS: DESVENLAFAXINE 50 MG TAB.ER.24H. PO SCH (11:00)
[2021-02-13] MEDS ORDERED: NITROGLYCERIN SUBLINGUAL 0.4 MG BOTTLE OF 25. SL PRN (13:45)
[2021-02-13] MEDS: MORPHINE SULFATE 2 MG/ML DISP.SYRIN. IV PRN ×2 (13:53→21:01)
--- NOTE | 2021-02-13 14:06 | PDOC2 ---
CONSULT DOS: DATE: 02/13/21 TIME: 13:58 Reason for Consult: Chest pain. Referring Physician: Dr. Sanchez Chief Complaint Chest pain Source: Chart review, Patient Problem List Problems Medical Problems: (1) Chest pain Status: Acute (2) Nausea & vomiting Status: Acute History of Present Illness The patient is a 6-year-old female who was admitted through the emergency room with a chief complaint of chest pain as well as nausea and vomiting. The patient's EKG showed a sinus rhythm with no acute ischemic changes. Troponin has been negative x2. Chest x-ray shows no acute pulmonary changes. It shows mild/moderate hiatal hernia and a dorsal column stimulator. A CTA of the chest on 01/25/21 showed no pulmonary emboli. The patient has a history of anxiety a possible previous CVA and gastroesophageal reflux disease. She is feeling mildly better today but continues to report chest discomfort although it has improved. She denies history of coronary disease or heart failure. Cardiovascular: HTN CENTRAL NERVOUS SYSTEM: CVA GI: GERD Psych: Anxiety Past Surgical History: Appendectomy, Cholecystectomy, Hysterectomy (Dorsal column stimulator, multiple back surgeries) Family History: Hypertension Smoke: No ALCOHOL: none Current Medications Current Medications Aspirin (Aspirin Chewable) 324 mg 1X ONCE PO Last administered on 02/12/21at 12:16; Start 02/12/21 at 12:15; Stop 02/12/21 at 12:16; Status DC Morphine Sulfate (Morphine 4mg Syringe) 4 mg PRN Q15MIN PRN IV/SQ PAIN GREATER THAN 3/10 Last administered on 02/13/21at 08:16; Start 02/12/21 at 12:15; Stop 02/13/21 at 12:14; Status DC Sodium Chloride 1,000 ml @ 1,000 mls/hr Q1H IV Last administered on 02/12/21at 12:17; Start 02/12/21 at 12:15; Stop 02/12/21 at 13:14; Status DC Ondansetron HCl (Zofran) 4 mg STK-MED ONCE .ROUTE ; Start 02/12/21 at 12:19; Stop 02/12/21 at 12:19; Status DC Ondansetron HCl (Zofran) 4 mg 1X ONCE IVP Last administered on 02/12/21at 12:25; Start 02/12/21 at 12:45; Stop 02/12/21 at 12:50; Status DC Morphine Sulfate (Morphine 4mg Syringe) 4 mg 1X ONCE IV Last administered on 02/12/21at 13:16; Start 02/12/21 at 13:00; Stop 02/12/21 at 13:01; Status DC Influenza Virus Vaccine Quadrival (Flulaval Quad 2600-0181 Syringe) 0.5 ml ONCE ONCE VAX IM ; Start 02/13/21 at 09:00; Stop 02/13/21 at 09:02; Status DC Benztropine Mesylate (Cogentin) 1 mg BID PO Last administered on 02/13/21at 08:16; Start 02/12/21 at 21:00 Clonazepam (KlonoPIN) 0.5 mg TID PO Last administered on 02/13/21at 08:16; Start 02/12/21 at 21:00 Desvenlafaxine Succinate (Pristiq Er) 25 mg DAILY PO ; Start 02/13/21 at 09:00; Stop 02/13/21 at 10:54; Status DC Diphenhydramine HCl (Benadryl) 50 mg QHS PO Last administered on 02/12/21at 21:14; Start 02/12/21 at 21:00 Levetiracetam (Keppra) 750 mg QHS PO Last administered on 02/12/21at 21:14; Start 02/12/21 at 21:00 Calcium Carbonate/ Glycine (Tums) 500 mg PRN AFTMEALHC PRN PO INDIGESTION Last administered on 02/13/21at 10:09; Start 02/13/21 at 09:45 Desvenlafaxine Succinate (Pristiq Er) 50 mg DAILY PO Last administered on 02/13/21at 11:00; Start 02/13/21 at 11:00 Nitroglycerin (Nitrostat) 0.4 mg PRN Q5MIN PRN SL CHEST PAIN; Start 02/13/21 at 13:45 Morphine Sulfate (Morphine 2mg Syringe) 4 mg PRN Q2HR PRN IV PAIN; Start 02/13/21 at 13:45; Status UNV Active Scripts Active Benadryl (Diphenhydramine Hcl) 25 Mg Capsule 2 Cap PO QHS 30 Days Benztropine Mesylate 1 Mg Tablet 1 Tab PO BID 30 Days Pristiq ER (Desvenlafaxine Succinate) 25 Mg Tab.er.24h 25 Mg PO DAILY 30 Days Clonazepam 0.5 Mg Tablet 1 Tab PO TID Reported Levetiracetam 750 Mg Tab.er.24h 750 Mg PO QHS Allergies: Coded Allergies: Penicillins (Verified Allergy, Intermediate, 02/12/21) General: YES: Fatigue Cardiovascular: yes: Chest Pain Gastrointestinal: YES: Nausea, Vomiting General: mild distress HEENT: Atraumatic Lungs: Clear to auscultation Heart: Regular rate Abdomen: Normal bowel sounds VITALS Vital Signs Date Time Temp Pulse Resp B/P (MAP) Pulse Ox O2 Delivery O2 Flow Rate FiO2 02/13/21 10:40 98.5 80 95/61 (72) 96 02/13/21 09:00 20 Room Air Labs Laboratory Tests Test 02/12/21 12:13 02/12/21 13:49 02/12/21 14:56 02/12/21 17:00 White Blood Count 8.1 x10^3/uL (4.0-11.0) Red Blood Count 3.84 x10^6/uL (3.50-5.40) Hemoglobin 9.5 g/dL (12.0-15.5) Hematocrit 30.1 % (36.0-47.0) Mean Corpuscular Volume 78 fL (79-100) Mean Corpuscular Hemoglobin 25 pg (25-35) Mean Corpuscular Hemoglobin Concent 32 g/dL (31-37) Red Cell Distribution Width 15.2 % (11.5-14.5) Platelet Count 267 x10^3/uL (140-400) Neutrophils (%) (Auto) 70 % (31-73) Lymphocytes (%) (Auto) 19 % (24-48) Monocytes (%) (Auto) 6 % (0-9) Eosinophils (%) (Auto) 4 % (0-3) Basophils (%) (Auto) 1 % (0-3) Neutrophils # (Auto) 5.6 x10^3uL (1.8-7.7) Lymphocytes # (Auto) 1.6 x10^3/uL (1.0-4.8) Monocytes # (Auto) 0.5 x10^3/uL (0.0-1.1) Eosinophils # (Auto) 0.3 x10^3/uL (0.0-0.7) Basophils # (Auto) 0.1 x10^3/uL (0.0-0.2) Prothrombin Time 9.9 SEC (9.4-11.4) Prothromb Time International Ratio 1.0 (0.9-1.1) Activated Partial Thromboplast Time 24 SEC (23-33) Sodium Level 138 mmol/L (136-145) Potassium Level 3.5 mmol/L (3.5-5.1) Chloride Level 104 mmol/L (98-107) Carbon Dioxide Level 19 mmol/L (21-32) Anion Gap 15 (6-14) Blood Urea Nitrogen 13 mg/dL (7-20) Creatinine 1.0 mg/dL (0.6-1.0) Estimated GFR (Cockcroft-Gault) 56.6 BUN/Creatinine Ratio 13 (6-20) Glucose Level 96 mg/dL (70-99) Calcium Level 9.0 mg/dL (8.5-10.1) Magnesium Level 1.8 mg/dL (1.8-2.4) Total Bilirubin 0.2 mg/dL (0.2-1.0) Aspartate Amino Transf (AST/SGOT) 11 U/L (15-37) Alanine Aminotransferase (ALT/SGPT) 18 U/L (14-59) Alkaline Phosphatase 140 U/L (46-116) Troponin I Quantitative < 0.017 ng/mL (0-0.055) < 0.017 ng/mL (0-0.055) ED-Tbp-O-Type Natriuretic Peptide 171 pg/mL (0-124) Total Protein 6.5 g/dL (6.4-8.2) Albumin 3.4 g/dL (3.4-5.0) Albumin/Globulin Ratio 1.1 (1.0-1.7) Coronavirus (COVID-19)(PCR) Not detected (NEGATIVE) SARS-CoV-2 Antigen (Rapid) Negative (NEGATIVE) Urine Collection Type Unknown Urine Color Yellow Urine Clarity Clear Urine pH 5.5 Urine Specific Alden 1.015 Urine Protein Neg (NEG-TRACE) Urine Glucose (UA) Neg mg/dL (NEG) Urine Ketones (Stick) Neg mg/dL (NEG) Urine Blood Neg (NEG) Urine Nitrite Neg (NEG) Urine Bilirubin Neg (NEG) Urine Urobilinogen Dipstick 0.2 mg/dL (0.2 mg/dL) Urine Leukocyte Esterase Neg (NEG) Urine RBC 0 /HPF (0-2) Urine WBC 0 /HPF (0-4) Urine Squamous Epithelial Cells Mod /LPF Urine Bacteria 0 /HPF (0-FEW) Images Chest x-ray as above Assessment/Plan 1. Chest pain pain. Patient is initial 2 troponins are normal. EKG shows no a cute ischemic changes. Patient does have a history as noted above of a hiatal hernia and gastroesophageal reflux disease. From a cardiac viewpoint she appears stable. Will complete rule out. Continue to monitor. Would consider outpatient ischemia work-up. 2. Nausea and vomiting. Improved. History of gastroesophageal reflux disease. We will continue baseline medications. Of note the patient also has a moderate size hiatal hernia. 3. Anxiety. Patient has a history of significant anxiety. MONCHO STEVENSON MD Feb 13, 2021 14:06
[2021-02-13] MEDS: IV NORMAL SALINE 1,000ML 1,000 ML IV SCH (14:38)
[2021-02-13 14:54] LABS: BASO % 1 % (0-3); EOS # 0.3 x10^3/uL (0.0-0.7); EOS % 5 % (0-3); HEMATOCRIT 26.4 % (36.0-47.0); HEMOGLOBIN 8.3 g/dL (12.0-15.5); LYMPH # 1.6 x10^3/uL (1.0-4.8); LYMPH % 27 % (24-48); MEAN CORPUSCULAR HEMOGLOBIN 25 pg (25-35); MEAN CORPUSCULAR HGB CONC 32 g/dL (31-37); MEAN CORPUSCULAR VOLUME 79 fL (79-100); MONO # 0.4 x10^3/uL (0.0-1.1); MONO % 8 % (0-9); NEUT # 3.6 x10^3uL (1.8-7.7); NEUT % 60 % (31-73); PLATELET COUNT 220 x10^3/uL (140-400); RED BLOOD COUNT 3.33 x10^6/uL (3.50-5.40); RED CELL DISTRIBUTION WIDTH 15.2 % (11.5-14.5); WHITE BLOOD COUNT 5.9 x10^3/uL (4.0-11.0)
[2021-02-13] MEDS: ENOXAPARIN 40 MG/0.4 ML SYRINGE. SQ SCH (14:59)
[2021-02-13 15:40] VITALS: BP 94/61
--- NOTE | 2021-02-13 16:14 | EKG ---
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
[2021-02-13 20:12] VITALS: BP 104/70
[2021-02-13] MEDS: diphenhydrAMINE HCL 25 MG CAPSULE PO SCH (21:02)
[2021-02-13] MEDS: levETIRAcetam 250 MG TABLET PO SCH (21:02)
[2021-02-13 23:36] VITALS: BP 99/67
--- NOTE | 2021-02-14 00:18 | PN ---
DATE: 02/13/2021 SUBJECTIVE: The patient was admitted with some chest pain yesterday, seems to be resting fairly comfortably, although she is still complaining to the nurses of intermittent chest discomfort. Given her morphine without much relief. She is low on her blood pressure and we will give her some IV fluids for that. She is not taking anything that should lower her blood pressure per se. Otherwise, her lungs are basically clear. Apparently, she has been seen also by Dr. Gimenez. Cardiology has made timely consults on her. She has been having problems with passing out. She may be just severely dehydrated, but we will go ahead and give her a liter of fluid to see if that does not get her blood pressure up and make further evaluation there. OBJECTIVE: GENERAL: The patient is alert and oriented. Speech is fluent and spontaneous. VITAL SIGNS: Blood pressure was down to 95/61, respiratory rate 18, pulse 22, afebrile, 2 liters per nasal cannula. LUNGS: Diminished, but clear. CARDIOVASCULAR: Regular sinus rhythm. ABDOMEN: Soft, nontender. EXTREMITIES: No clubbing, cyanosis or edema. NEUROLOGIC: Baseline. ASSESSMENT AND PLAN: We will go ahead and continue to monitor the patient accordingly, make further assessment per other testing as well as monitoring blood pressure with increasing the IV fluids. JONH/ZAHRA/EMMANUEL DR: JONH/ritika TID: [id number]
[2021-02-14] MEDS: MORPHINE SULFATE 2 MG/ML DISP.SYRIN. IV PRN ×2 (01:28→07:55)
[2021-02-14 01:40] VITALS: BP 113/80
[2021-02-14] MEDS: IV NORMAL SALINE 1,000ML 1,000 ML IV SCH ×2 (03:50→17:08)
[2021-02-14 06:12] VITALS: BP 103/69
[2021-02-14] MEDS: clonazePAM 0.5 MG TABLET PO SCH ×3 (07:55→21:03)
[2021-02-14] MEDS: BENZTROPINE MESYLATE 1 MG TABLET PO SCH ×2 (07:55→21:03)
--- NOTE | 2021-02-14 08:15 | NUR ---
medication administration note Patient has an order for 4 mg morphine prn for pain. pulled out 2mg syringe of morphine from the [facility] , administered to the patient. pharmacy aware of the event.
[2021-02-14] MEDS: DESVENLAFAXINE 50 MG TAB.ER.24H. PO SCH (09:00)
[2021-02-14 11:01] VITALS: BP 90/59
--- NOTE | 2021-02-14 11:30 | PDOC ---
DATE OF SERVICE: DOS: DATE: 02/14/21 TIME: 11:28 SUBJECTIVE: Patient seen and examined OBJECTIVE: Problems: Problems Medical Problems: (1) Chest pain Status: Acute (2) Nausea & vomiting Status: Acute Vital Signs/I&O: Vital Signs Date Time Temp Pulse Resp B/P (MAP) Pulse Ox O2 Delivery O2 Flow Rate FiO2 02/14/21 11:01 98.0 84 20 90/59 (69) 96 Room Air 02/14/21 06:12 1.0 I & O 02/13/21 02/13/21 02/14/21 15:00 23:00 07:00 Intake Total 240 ml 410 ml 1050 ml Output Total 0 ml Balance 240 ml 410 ml 1050 ml Labs: Laboratory Tests Test 02/13/21 14:35 White Blood Count 5.9 x10^3/uL (4.0-11.0) Red Blood Count 3.33 x10^6/uL (3.50-5.40) L Hemoglobin 8.3 g/dL (12.0-15.5) L Hematocrit 26.4 % (36.0-47.0) L Mean Corpuscular Volume 79 fL (79-100) Mean Corpuscular Hemoglobin 25 pg (25-35) Mean Corpuscular Hemoglobin Concent 32 g/dL (31-37) Red Cell Distribution Width 15.2 % (11.5-14.5) H Platelet Count 220 x10^3/uL (140-400) Neutrophils (%) (Auto) 60 % (31-73) Lymphocytes (%) (Auto) 27 % (24-48) Monocytes (%) (Auto) 8 % (0-9) Eosinophils (%) (Auto) 5 % (0-3) H Basophils (%) (Auto) 1 % (0-3) Neutrophils # (Auto) 3.6 x10^3uL (1.8-7.7) Lymphocytes # (Auto) 1.6 x10^3/uL (1.0-4.8) Monocytes # (Auto) 0.4 x10^3/uL (0.0-1.1) Eosinophils # (Auto) 0.3 x10^3/uL (0.0-0.7) Basophils # (Auto) 0.0 x10^3/uL (0.0-0.2) D-Dimer (Brenda) 0.87 mg/L (0.00-0.50) H Iron Level 26 ug/dL (50-170) L Total Iron Binding Capacity 289 ug/dL (250-450) Iron Saturation 9 % (15-34) L Creatine Kinase 62 U/L (26-192) Troponin I Quantitative < 0.017 ng/mL (0-0.055) Physical Exam: Chest. Minimally decreased breath sounds. CV. Regular rate and rhythm. Abdomen. Soft. ASSESSMENT: 1. Chest pain. Patient's 3troponins are normal. EKG shows no acute ischemic changes. Patient does have a history as noted above of a hiatal hernia and gastroesophageal reflux disease. She is feeling better today but still has some mild chest discomfort. We will continue present treatments. Outpatient ischemia work-up. Echo tomorrow if the patient is still hospitalized. 2. Nausea and vomiting. Improved. History of gastroesophageal reflux disease. We will continue baseline medications. Of note the patient also has a moderate size hiatal hernia. Hemoglobin hematocrit have fallen overnight. We will recheck in the morning. 3. Anxiety. The patient is improved today. Justification of Admission: Justification of Admission: Justification of Admission Dx: N/A MONCHO STEVENSON MD Feb 14, 2021 11:30
[2021-02-14] MEDS ORDERED: BENZOCAINE/MENTHOL LOZNGE 18'S BOX. PO PRN (12:45)
[2021-02-14] MEDS: ENOXAPARIN 40 MG/0.4 ML SYRINGE. SQ SCH (14:07)
[2021-02-14 15:12] VITALS: BP 118/81
[2021-02-14] MEDS ORDERED: PANTOPRAZOLE 40 MG TABLET. PO ONE (19:00)
[2021-02-14 19:55] VITALS: BP 111/79
[2021-02-14] MEDS: MAG HYDROX/AL HYDROX/SIMETH 30 ML ORAL.SUSP PO SCH (21:02)
[2021-02-14] MEDS: diphenhydrAMINE HCL 25 MG CAPSULE PO SCH (21:03)
[2021-02-14] MEDS: levETIRAcetam 250 MG TABLET PO SCH (21:03)
[2021-02-14] MEDS: MORPHINE SULFATE 4 MG/ML DISP.SYRIN. IV PRN (22:14)
--- NOTE | 2021-02-15 00:38 | PN ---
SUBJECTIVE: The patient is a 60-year-old female who came in with chest pain. She has been evaluated thoroughly by Dr. Gimenez and her cardiac enzymes have cleared and he feels it may be related to some type of reflux esophagitis or GERD and needs a GI consult. Presently, the patient is using her morphine for pain medicine, but we will switch her over to PPIs in an anti-GERD situation. OBJECTIVE: VITAL SIGNS: Her previous blood pressure was low. Now with a liter of fluid, she is up to 118/80, respiratory rate 20, pulse 70, afebrile, 97% oxygen saturation. LABORATORY DATA: The patient's chest x-ray was no acute findings and her labs, coags did show an elevated D-dimer, which was (NC). The patient will be entertained for a CTA for further evaluation on that issue. IMPRESSION AND PLAN: Chest pain, anxiety, hypotension, 97% on room air. Continue with workup and do a CTA on her for further adjustment on her medications. She is also low on her iron and she is anemic at 8.3 and 26. Not quite clear if her Hemoccults have been positive as yet, but we will make adjustments on all those as noted above. JONH/LUIS ALBERTO/ROSITA DR: JONH/ritika TID: [id number]
[2021-02-15 06:17] VITALS: BP 126/72
[2021-02-15] MEDS: IV NORMAL SALINE 1,000ML 1,000 ML IV SCH (06:30)
[2021-02-15 07:01] LABS: BASO % 0 % (0-3); EOS # 0.3 x10^3/uL (0.0-0.7); EOS % 6 % (0-3); HEMATOCRIT 26.1 % (36.0-47.0); HEMOGLOBIN 8.3 g/dL (12.0-15.5); LYMPH # 1.8 x10^3/uL (1.0-4.8); LYMPH % 33 % (24-48); MEAN CORPUSCULAR HEMOGLOBIN 25 pg (25-35); MEAN CORPUSCULAR HGB CONC 32 g/dL (31-37); MEAN CORPUSCULAR VOLUME 79 fL (79-100); MONO # 0.4 x10^3/uL (0.0-1.1); MONO % 7 % (0-9); NEUT # 2.9 x10^3uL (1.8-7.7); NEUT % 54 % (31-73); PLATELET COUNT 236 x10^3/uL (140-400); RED BLOOD COUNT 3.33 x10^6/uL (3.50-5.40); RED CELL DISTRIBUTION WIDTH 15.1 % (11.5-14.5); WHITE BLOOD COUNT 5.4 x10^3/uL (4.0-11.0)
--- NOTE | 2021-02-15 08:10 | PDOC ---
CARDIO Progress Notes Date & Time Date of Service DATE: 02/15/21 TIME: 08:07 Time of Evaluation 08:07 Subjective Notes C/o left sided chest pain. worse with applying pressure to the left chest. Also c/o nausea Vitals Vitals Vital Signs Date Time Temp Pulse Resp B/P (MAP) Pulse Ox O2 Delivery O2 Flow Rate FiO2 02/15/21 06:17 97.8 77 20 126/72 (90) 98 Room Air 02/14/21 06:12 1.0 Weight Weight [ ] Input and Output I.O. Intake and Output 02/15/21 07:00 Intake Total 1060 ml Output Total 0 ml Balance 1060 ml Intake Oral 1060 ml Output Emesis 0 ml # Voids 3 Laboratory Labs Laboratory Tests Test 02/13/21 14:35 02/15/21 06:14 White Blood Count 5.9 x10^3/uL (4.0-11.0) 5.4 x10^3/uL (4.0-11.0) Red Blood Count 3.33 x10^6/uL (3.50-5.40) 3.33 x10^6/uL (3.50-5.40) Hemoglobin 8.3 g/dL (12.0-15.5) 8.3 g/dL (12.0-15.5) Hematocrit 26.4 % (36.0-47.0) 26.1 % (36.0-47.0) Mean Corpuscular Volume 79 fL (79-100) 79 fL (79-100) Mean Corpuscular Hemoglobin 25 pg (25-35) 25 pg (25-35) Mean Corpuscular Hemoglobin Concent 32 g/dL (31-37) 32 g/dL (31-37) Red Cell Distribution Width 15.2 % (11.5-14.5) 15.1 % (11.5-14.5) Platelet Count 220 x10^3/uL (140-400) 236 x10^3/uL (140-400) Neutrophils (%) (Auto) 60 % (31-73) 54 % (31-73) Lymphocytes (%) (Auto) 27 % (24-48) 33 % (24-48) Monocytes (%) (Auto) 8 % (0-9) 7 % (0-9) Eosinophils (%) (Auto) 5 % (0-3) 6 % (0-3) Basophils (%) (Auto) 1 % (0-3) 0 % (0-3) Neutrophils # (Auto) 3.6 x10^3uL (1.8-7.7) 2.9 x10^3uL (1.8-7.7) Lymphocytes # (Auto) 1.6 x10^3/uL (1.0-4.8) 1.8 x10^3/uL (1.0-4.8) Monocytes # (Auto) 0.4 x10^3/uL (0.0-1.1) 0.4 x10^3/uL (0.0-1.1) Eosinophils # (Auto) 0.3 x10^3/uL (0.0-0.7) 0.3 x10^3/uL (0.0-0.7) Basophils # (Auto) 0.0 x10^3/uL (0.0-0.2) 0.0 x10^3/uL (0.0-0.2) D-Dimer (Brenda) 0.87 mg/L (0.00-0.50) Iron Level 26 ug/dL (50-170) Total Iron Binding Capacity 289 ug/dL (250-450) Iron Saturation 9 % (15-34) Creatine Kinase 62 U/L (26-192) Troponin I Quantitative < 0.017 ng/mL (0-0.055) Physical Exams HEENT: Neck Supple W Full Motion Chest: Symmetric Lungs: Clear to Auscultation Heart: RRR Abdomen: Soft N/T Extremities: No Edema Neurology: alert, oriented, follow commands Assessment Assessment 1. Chest pain, atypical; AMI ruled out 2. Syncopal episode; most probably vasovagal 3. Nausea/vomiting; CT abdomen/pelvis without acute findings. Chest CTA today 4. Hypotension; improved s/p IVFs. Now adequate 5. Anemia 6. H/o CVA Recommendations Secondary prevention Add ASA Will arranged outpatient echo and ischemia evaluation Supportive care DAINN FINK APRN Feb 15, 2021 08:10
[2021-02-15] MEDS: BENZTROPINE MESYLATE 1 MG TABLET PO SCH ×2 (08:27→20:10)
[2021-02-15] MEDS: PANTOPRAZOLE 40 MG TABLET. PO SCH (08:27)
[2021-02-15] MEDS: MAG HYDROX/AL HYDROX/SIMETH 30 ML ORAL.SUSP PO SCH ×4 (08:27→20:10)
[2021-02-15] MEDS: clonazePAM 0.5 MG TABLET PO SCH ×3 (08:27→20:10)
[2021-02-15] MEDS: DESVENLAFAXINE 50 MG TAB.ER.24H. PO SCH (08:28)
[2021-02-15] MEDS: MORPHINE SULFATE 4 MG/ML DISP.SYRIN. IV PRN ×3 (08:36→20:10)
[2021-02-15] MEDS ORDERED: IOHEXOL 350 MG/ML 100 ML VIAL. IV ONE (09:30)
[2021-02-15] MEDS: FERROUS SULFATE 325 MG TABLET. PO SCH (10:01)
--- NOTE | 2021-02-15 10:20 | RAD ---
Exam: CT abdomen/pelvis without intravenous contrast Indication: Nausea and vomiting Comparison: CTA chest 01/25/2021 Technique: Helical CT imaging performed of the abdomen and pelvis without the use of intravenous cont rast. Sagittal and coronal reformats were obtained. One or more of the following individualized dose reduction techniques were utilized for this examinat ion: 1. Automated exposure control 2. Adjustment of the mA and/or kV according to patient size 3. Use of iterative reconstruction technique. Findings: Inherently limited evaluation without intravenous contrast. Lower chest: There are tiny bilateral pleural effusions. Moderate hiatal hernia. The heart appears mi ldly enlarged there is a 3 mm nodule in the right middle lobe and mild atelectasis in the lung bases. Liver: There is a 1.6 cm simple cyst in the right hepatic lobe. The liver measures 18.6 cm in length. Gallbladder/Biliary Tree: The gallbladder is surgically absent. Bile ducts are normal Pancreas: Normal. Spleen: Normal Adrenal Glands: Normal. Kidneys/Ureters/Bladder: Kidneys, ureters, and bladder are normal. Reproductive Organs: Uterus is surgically absent. No adnexal mass. Stomach, small bowel, and colon: Moderate hiatal hernia. There is no small bowel obstruction. The col on is normal. The appendix is not visualized. Vasculature: Abdominal aorta is normal in caliber. Mild calcified atherosclerosis. Lymph Nodes: No lymphadenopathy. Peritoneum and retroperitoneum: No free fluid or free air. Bones: No acute osseous abnormality. There are surgical changes of posterior decompression and osseou s posterior and interbody fusion at L4-L5. A spinal stimulator is present with leads extending into t he dorsal thoracic canal. Impression: 1. No acute abnormality in the abdomen and pelvis. 2. Unchanged moderate hiatal hernia. 3. New tiny bilateral pleural effusions and mild bibasilar opacities, which may be atelectasis or mi ld pulmonary edema. 4. Unchanged 3 mm nodule in the right middle lobe. Electronically signed by: Allie Ram MD (02/15/2021 10:17 AM) [id number]
--- NOTE | 2021-02-15 10:46 | RAD ---
Examination: CT angiography chest with IV contrast HISTORY: History of dyspnea, chest pain COMPARISON: 01/25/2021 TECHNIQUE: Axial CT angiographic images of chest were performed with IV contrast. Coronal and sagitta l 3-D MIP reformats are performed Exposure: One or more of the following individualized dose reduction techniques were utilized for thi s examination: 1. Automated exposure control 2. Adjustment of the mA and/or kV according to patient size 3. Use of iterative reconstruction technique FINDINGS: The visualized thyroid gland grossly appears unremarkable. The central airways are patent. Moderate size hiatal hernia. The caliber of the aorta grossly appears unremarkable. Coronary artery c alcifications. There is no evidence of filling defect identified in the main pulmonary arterial trunk and right and left main pulmonary arteries. The evaluation of the distal branches of the pulmonary a rteries is limited. Mild bibasilar lung airspace opacities likely atelectasis or infiltrates with sma ll bilateral pleural effusions. Cystic structure identified in the liver similar to prior exam. The s pleen, adrenals grossly appears unremarkable. Mild degenerative changes thoracic spine. IMPRESSION: 1.No evidence of central pulmonary embolism. 2. Mild bibasilar lung atelectasis or infiltrates with small bilateral pleural effusions. 3. Moderate size hiatal hernia. Electronically signed by: Jose Brasher MD (02/15/2021 10:43 AM) [id number]
[2021-02-15 11:46] VITALS: BP 100/65
[2021-02-15] MEDS: ENOXAPARIN 40 MG/0.4 ML SYRINGE. SQ SCH (13:39)
[2021-02-15 15:26] VITALS: BP 107/64
--- NOTE | 2021-02-15 17:20 | NUR ---
PT ASKED FOR PAIN MEDICINE TODAY. PT THREW UP IN TRASH CAN TODAY AND DURING THAT EVENT HAD A RUN OF TACHYCARDIA. PT RESTED MOST OF THE DAY. PT HAS NORMAL SALINE RUNNING @75/HR.
[2021-02-15 20:05] VITALS: BP 91/58
[2021-02-15] MEDS: levETIRAcetam 250 MG TABLET PO SCH (20:10)
[2021-02-15] MEDS: diphenhydrAMINE HCL 25 MG CAPSULE PO SCH (20:10)
[2021-02-15 23:00] VITALS: BP 106/70
--- NOTE | 2021-02-16 03:45 | PN ---
SUBJECTIVE: The patient is still complaining of left chest pain with shortness of breath. The patient had a CTA, which was basically stable from that regard. No pulmonary emboli, but did have a lung atelectasis and some bilateral pleural effusions. OBJECTIVE: VITAL SIGNS: Blood pressure 110/64, respiratory rate 20, pulse 77, afebrile, 93% on room air. GENERAL: The patient is alert and oriented, looks somewhat lethargic. LUNGS: Diminished, basically clear. CARDIOVASCULAR: Regular sinus rhythm, S1, S2. ABDOMEN: Soft, nontender. LABORATORY DATA: The patient has been low on her hemoglobin and hematocrit of 8.3 and 26. Low iron, started on iron tablets. Iron was 26, TIBC of 289 and iron saturation only 9. She may need a blood transfusion and some additional B12. Her D-dimer was elevated at 0.87, that is why we did the CTA. SARS is negative. IMPRESSION: Chest pain, syncopal episodes, nausea, vomiting, hypotension, iron deficiency anemia. PLAN: Continue with rehabilitation and monitor for possible discharge if she is stable on her feet. Check for orthostasis. TEN DR: Carmen TID: [id number]
[2021-02-16] MEDS: IV NORMAL SALINE 1,000ML 1,000 ML IV SCH (04:18)
[2021-02-16 05:52] VITALS: BP 116/74
[2021-02-16] MEDS: clonazePAM 0.5 MG TABLET PO SCH (07:52)
[2021-02-16] MEDS: FERROUS SULFATE 325 MG TABLET. PO SCH (07:52)
[2021-02-16] MEDS: BENZTROPINE MESYLATE 1 MG TABLET PO SCH (07:53)
[2021-02-16] MEDS: DESVENLAFAXINE 50 MG TAB.ER.24H. PO SCH (07:53)
[2021-02-16] MEDS: PANTOPRAZOLE 40 MG TABLET. PO SCH (07:53)
[2021-02-16] MEDS: MAG HYDROX/AL HYDROX/SIMETH 30 ML ORAL.SUSP PO SCH ×2 (07:55→12:06)
[2021-02-16] MEDS ORDERED: ASPIRIN ENTERIC COATED 81 MG TABLET.DR. PO SCH (08:00)
--- NOTE | 2021-02-16 08:11 | PDOC ---
CARDIO Progress Notes Date & Time Date of Service DATE: 02/16/21 TIME: 08:08 Time of Evaluation 08:08 Subjective Notes c/o left chest pain. worse with applying pressure. Seems to be worse after eating also. Vitals Vitals Vital Signs Date Time Temp Pulse Resp B/P (MAP) Pulse Ox O2 Delivery O2 Flow Rate FiO2 02/16/21 05:52 97.9 70 16 116/74 (88) 94 Room Air 02/14/21 06:12 1.0 Weight Weight [ ] Input and Output I.O. Intake and Output 02/16/21 07:00 Intake Total 2160 ml Balance 2160 ml Intake Oral 1160 ml IV Total 1000 ml # Voids 3 Laboratory Labs Laboratory Tests Test 02/15/21 06:14 White Blood Count 5.4 x10^3/uL (4.0-11.0) Red Blood Count 3.33 x10^6/uL (3.50-5.40) Hemoglobin 8.3 g/dL (12.0-15.5) Hematocrit 26.1 % (36.0-47.0) Mean Corpuscular Volume 79 fL (79-100) Mean Corpuscular Hemoglobin 25 pg (25-35) Mean Corpuscular Hemoglobin Concent 32 g/dL (31-37) Red Cell Distribution Width 15.1 % (11.5-14.5) Platelet Count 236 x10^3/uL (140-400) Neutrophils (%) (Auto) 54 % (31-73) Lymphocytes (%) (Auto) 33 % (24-48) Monocytes (%) (Auto) 7 % (0-9) Eosinophils (%) (Auto) 6 % (0-3) Basophils (%) (Auto) 0 % (0-3) Neutrophils # (Auto) 2.9 x10^3uL (1.8-7.7) Lymphocytes # (Auto) 1.8 x10^3/uL (1.0-4.8) Monocytes # (Auto) 0.4 x10^3/uL (0.0-1.1) Eosinophils # (Auto) 0.3 x10^3/uL (0.0-0.7) Basophils # (Auto) 0.0 x10^3/uL (0.0-0.2) Physical Exams HEENT: Neck Supple W Full Motion Chest: Symmetric Lungs: Clear to Auscultation Heart: RRR Abdomen: Soft N/T Extremities: No Edema Neurology: alert, oriented, follow commands, other (drowsy) Assessment Assessment 1. Chest pain, atypical; AMI ruled out 2. Syncopal episode; most probably vasovagal 3. Nausea/vomiting; CT abdomen/pelvis without acute findings. 4. Hypotension; improved s/p IVFs. Now adequate 5. Anemia 6. H/o CVA 7. Elevated d-dimer; CTA negative for acute findings Recommendations Secondary prevention ASA, statin Outpatient echo and ischemia evaluation as arranged Supportive care Follow up in our office with DIANN Gusman APRN Feb 16, 2021 08:11
[2021-02-16 10:25] VITALS: BP 122/77
[2021-02-16] MEDS ORDERED: PANT40TA6 PO (13:02)
[2021-02-16] MEDS ORDERED: FERR325T72 PO (13:02)
--- NOTE | 2021-02-16 13:55 | NUR ---
PT WHEELED TO FRONT BY STAFF. PT PICKED UP BY FAMILY. PT HAS BELONGINGS AND DISCHARGE PAPERWORK. ANOTHER STAFF MEMBER WITNESSED THIS APPLICATIONS DEVELOPMENT ANALYST PT. PT STABLE.
--- NOTE | 2021-02-16 19:05 | CARD ---
MR#: [id number] Date of Study: 02/16/2021 Ordering Physician: MONCHO BERNSTEIN, Referring Physician: MONCHO BERNSTEIN, Tech: Jean Gary [facility] APPROVED REPORT EXAM: Two-dimensional and M-mode echocardiogram with Doppler and color Doppler. Other Information Quality : Average Rhythm : NSR INDICATION Chest Pain RISK FACTORS Hypertension 2D DIMENSIONS Left Atrium(2D)4.2 (1.6-4.0cm)IVSd1.2 (0.7-1.1cm) Aortic Root(2D)3.0 (2.0-3.7cm)LVDd4.3 (3.9-5.9cm) LVOT Diameter1.8 (1.8-2.4cm)PWd1.2 (0.7-1.1cm) LVDs2.7 (2.5-4.0cm)FS (%) 36.0 % SV53.9 ml Aortic Valve AoV Peak Rajesh.133.6cm/sAoV VTI31.0cm AO Peak GR.7.1mmHgLVOT Peak Rajesh.129.9cm/s LVOT VTI 26.42cmAO Mean GR.4mmHg LAURA (VMAX)2.35hs9REA (VTI)2.22cm2 Mitral Valve MV E Niwoajyw39.8cm/sMV E Peak Gr.3mmHg MV DECEL [id number] A Brbfoyup57.7cm/s MV E Mean Gr.1mmHgE/A Ratio1.4 Pulmonary Valve PV Peak Vnqoclym90.4cm/sPV Peak Grad.2mmHg Tricuspid Valve TR P. Wvhnvgvb283hx/sTR Peak Gr.27mmHg Pulmonary Vein S1 Wvxulwql06.9cm/sD2 Sflhxgna14.2cm/s LEFT VENTRICLE The left ventricle is normal size. There is mild concentric left ventricular hypertrophy. The left ve ntricular systolic function is normal . LV ejection fraction of 55 to 60%. There is normal LV segment al wall motion. Tissue Doppler imaging reveals abnormal left ventricular diastolic dysfunction. No le ft ventricle thrombus noted on this study. There is no ventricular septal defect visualized. There is no left ventricular aneurysm. There is no mass noted in the left ventricle. RIGHT VENTRICLE The right ventricle is normal size. There is normal right ventricular wall thickness. The right ventr icular systolic function is normal. ATRIA The left atrium is moderately dilated. The right atrium size is normal. The interatrial septum is int act with no evidence for an atrial septal defect or patent foramen ovale as noted on 2-D or Doppler i maging. AORTIC VALVE The aortic valve is mildly sclerotic. The aortic valve is trileaflet. Doppler and Color Flow revealed no significant aortic regurgitation. There is no significant aortic valvular stenosis. There is no a ortic valvular vegetation. MITRAL VALVE The mitral valve is normal in structure and function. There is no evidence of mitral valve prolapse. There is no mitral valve stenosis. Doppler and Color-flow revealed mild mitral regurgitation. TRICUSPID VALVE The tricuspid valve is normal in structure and function. Doppler and Color Flow revealed trace to mil d tricuspid regurgitation. The PA pressure was estimated at 31 mmHg. There is no tricuspid valve prol apse or vegetation. There is no tricuspid valve stenosis. PULMONIC VALVE The pulmonary valve is normal in structure and function. Doppler and Color Flow revealed no pulmonic valvular regurgitation. There is no pulmonic valvular stenosis. GREAT VESSELS The aortic root is normal in size. The ascending aorta is normal in size. The pulmonary artery is nor mal. IVC is poorly visualized. Poor subcostal views. PERICARDIAL EFFUSION There is no pleural effusion. There is no evidence of significant pericardial effusion. Critical Notification Critical Value: No <Conclusion> The left ventricle is normal size. The left ventricular systolic function is normal . LV ejection fraction of 55 to 60%. There is mild concentric left ventricular hypertrophy. Doppler and Color Flow revealed no significant aortic regurgitation. There is no significant aortic valvular stenosis. Doppler and Color-flow revealed mild mitral regurgitation. Doppler and Color Flow revealed trace to mild tricuspid regurgitation. The PA pressure was estimated at 31 mmHg. Signed by : Moncho Bernstein MD Electronically Approved : 02/16/2021 19:05:11
[2021-02-16] MEDS ORDERED: ATORVASTATIN CALCIUM 10 MG TABLET. PO SCH (21:00)
== END 2021-02-16 13:57 | disposition home or self-care (01) | DRG 74 ==
LOC: ER 11:53 → 1 SOUTH 13:44
PROVIDERS: ADMIT Family Medicine; ATTEND Family Medicine
DX: G90.8 Other disorders of autonomic nervous system (principal); J90 Pleural effusion, not elsewhere classified; J98.11 Atelectasis; K21.9 Gastro-esophageal reflux disease without esophagitis; D50.9 Iron deficiency anemia, unspecified; F41.9 Anxiety disorder, unspecified; I10 Essential (primary) hypertension; K44.9 Diaphragmatic hernia without obstruction or gangrene; Z82.49 Family history of ischemic heart disease and other diseases of the circulatory system; Z86.73 Personal history of transient ischemic attack (TIA), and cerebral infarction without residual deficits; Z90.49 Acquired absence of other specified parts of digestive tract; Z90.710 Acquired absence of both cervix and uterus; F32.9 Major depressive disorder, single episode, unspecified; I95.9 Hypotension, unspecified; Z20.822 Contact with and (suspected) exposure to COVID-19; Z88.0 Allergy status to penicillin
CPT/HCPCS: 36415; 71045; 71275; 74176; 80053; 80061; 81001; 82550; 83540; 83550; 83735; 83880; 84484; 85025; 85379; 85610; 85730; 87426; 90471; 90686; 93005; 93306; 96361; 96374; 96375; J1650; J2270; J2405; Q0163; Q9967; U0003; 97110; 99285-25; J7030

== ENCOUNTER 2021-04-30 18:26 | Emergency (ER) | payer MEDICARE ==
[~2021-04-30] VITALS: Ht 162.6 cm; Wt 69.3 kg
[~2021-04-30 18:26] MED LIST changes: +FERR325T72 PO; +PANT40TA6 PO
[2021-04-30] MEDS ORDERED: ONDANSETRON PF 4 MG/2 ML VIAL. IVP ONE (19:00)
[2021-04-30] MEDS ORDERED: LIDO:MAALOX 1:1 20 ML SINGLE DOSE. PO ONE (19:00)
[2021-04-30] MEDS ORDERED: IV NORMAL SALINE 1,000ML 1,000 ML IV ONE (19:00)
--- NOTE | 2021-04-30 19:03 | PHYS DOC ---
Past History Past Medical History: Anxiety, Depression, Stroke (JAN AMEZQUITA APRN) Past Surgical History: Appendectomy, Cholecystectomy, Hysterectomy Additional Past Surgical Histo: bilateral ankle repair, back surgery x7 (JAN AMEZQUITA APRN) Alcohol Use: None (JAN AMEZQUITA APRN) General Adult EDM: Chief Complaint: MULTIPLE COMPLAINTS HPI: HPI: Patient is a 60-year-old female who presents to the emergency department for multiple complaints. Patient reports that she had an appointment today with Dr. Sutherland because she was having nausea, vomiting, diarrhea, cough, shortness of breath, headache, body aches and left-sided chest pain. She reports that her mother and father both have COVID-19. She states that she was in Dr. Nur's office and her blood pressure was checked and it was 99 systolic so they sent her to the ER for hypotension. Patient reports that she has been having some dizziness but denies any syncope, blood in her stools or vomit, or fevers. She is reporting left-sided chest pain that feels like a heaviness. She reports that it radiates down to her back and it is not worse with movement or cough. She rates it 7 out of 10. (JAN AMEZQUITA APRN) Review of Systems: Review of Systems: Constitutional: See HPI Respiratory: See HPI Cardiovascular: See HPI GI: See HPI Musculoskeletal: See HPI Neurologic: See HPI (JAN AMEZQUITA APRN) Allergies: Allergies: Allergies Coded Allergies Type Severity Reaction Last Updated Verified Penicillins Allergy Intermediate 04/30/21 Yes (JAN AMEZQUITA APRN) Physical Exam: PE: Constitutional: Well developed, well nourished, no acute distress, non-toxic appearance. [] HENT: Normocephalic, atraumatic, bilateral external ears normal, oropharynx moist, no oral exudates, nose normal. [] Eyes: PERRLA, EOMI, conjunctiva normal, no discharge. [] Neck: Normal range of motion, no tenderness, supple, no stridor. [] Cardiovascular:Heart rate regular rhythm, no murmur [] Lungs & Thorax: Bilateral breath sounds clear to auscultation [] Abdomen: Bowel sounds normal, soft, no tenderness, no masses, no pulsatile masses. [] Skin: Warm, dry, no erythema, no rash. [] Back: No tenderness, no CVA tenderness. [] Extremities: No tenderness, no cyanosis, no clubbing, ROM intact, no edema. [] Neurologic: Alert and oriented X 3, normal motor function, normal sensory function, no focal deficits noted. [] Psychologic: Affect normal, judgement normal, mood normal. [] (JAN AMEZQUITA APRN) Current Patient Data: Vital Signs: Vital Signs Date Time Temp Pulse Resp B/P (MAP) Pulse Ox O2 Delivery O2 Flow Rate FiO2 04/30/21 18:43 98.6 85 19 149/99 (116) 100 Room Air (JAN AMEZQUITA APRN) EKG: EKG: EKG performed by ER staff at 1918 shows sinus rhythm with a rate of 78, QTc of 432, no STEMI read by Dr. Salguero at 1919 [] (JAN AMEZQUITA APRN) Radiology/Procedures: Radiology/Procedures: []PROCEDURE: PORTABLE CHEST 1V Study: XR CHEST 1V Indication: Shortness of air. Comparison: 02/12/2021 Findings: Spinal cord stimulator device. Several EKG wires. The cardiomediastinal silhouette and robert are within normal limits. No focal airspace infiltrate, increasing effusion or pneumothorax. Impression: No acute radiographic abnormality of the chest. Electronically signed by: VIRGIL MAKI MD (04/30/2021 7:58 PM) [facility] DICTATED AND SIGNED BY: VIRGIL MAKI MD DATE: 04/30/211956 CC: TAINA KRISHNAN MD; JAN AMEZQUITA APRN ~MTH0 0 (JAN AMEZQUITA APRN) Radiology/Procedures: [place] [address] IMAGING REPORT Signed PATIENT: NORMAN ANGEL ACCOUNT: [id number] : 1960 LOCATION: ER AGE: 60 SEX: F EXAM STATUS: REG ER ORD. PHYSICIAN: JAN AMEZQUITA APRN REASON: OMNI 350,85ML IV.Elevated ddimer, soa PROCEDURE: CT ANGIOGRAPHY CHEST Study: CT CHEST WITH CONTRAST - PULMONARY ANGIOGRAM History: Elevated d-dimer. Shortness of air. Pulmonary embolism. Comparison: 02/15/2021 Technique: Helical CT of the chest performed after the administration of 85 cc Omnipaque 350 intravenous contrast and timed for angiographic evaluation of the pulmonary arteries per PE protocol. Coronal and sagittal 3D MIP reformations were obtained. One or more of the following individualized dose reduction techniques were utilized for this examination: 1. Automated exposure control 2. Adjustment of the mA and/or kV according to patient size 3. Use of iterative reconstruction technique. Findings: Pulmonary Arteries: No main, lobar or segmental pulmonary embolism. Main pulmona ry artery caliber is within normal limits. Heart/Systemic Vasculature: No aortic dissection or aneurysm. The visualized great vessels are patent. Trivessel calcific coronary artery disease. Mediastinum: Similarly sized lymph nodes. Moderate hiatal hernia again noted. Much of the esophagus is distended with fluid/debris. Paraesophageal lymph node to the left of midline on image 75 series 4 has not significant changed. Mild circumferential esophageal wall thickening in this region. Lungs: A few small solid pulmonary nodules were present on the comparison and have not changed in size to include a 5 mm subpleural nodule at the right lower lobe on image 74 series 4. A few very faint groundglass nodular foci are newly seen such as within the lingula on image 65 series 4 measuring 5 mm. Improved aeration of the lungs from the comparison. Tiny amount of residual pleural fluid. Soft tissue density at the medial aspect of the left lower lobe abutting a portion of the mediastinum is unchanged at 2.3 cm AP on image 74 series 4. No central airway occlusion. Neck/Axilla/Body Wall: No axillary adenopathy. Upper Abdomen: Unchanged low-attenuation focus centrally within the right hepatic lobe. Absent gallbladder. Bones: No acute or aggressive osseous abnormality. Miscellaneous: Spinal cord stimulator device. IMPRESSION: 1. No main, lobar or segmental pulmonary embolism. 2. Improved aeration of the lungs from the 02/15/2021 comparison and pleural effusions have decreased now with only trace residual. Several small solid pulmonary nodules are unchanged in size as is a branching soft tissue density focus at the medial aspect of the left lower lobe again measuring 2.3 cm AP. In regard to the left lower lobe abnormality follow-up is recommended in 3 months to confirm stability or resolution. 3. Patulous esophagus containing fluid. Circumferential wall thickening of the distal esophagus and a moderate-sized hiatal hernia. The findings could all relate to reflux but a malignant process causing partial obstruction is not excl uded. Direct inspection with endoscopy is recommended. 4. A few very faint groundglass densities within the lingula. Given the esophageal findings very mild aspiration is possible. 5. Trivessel calcific coronary artery disease and additional unchanged findings described above. Electronically signed by: VIRGIL MAKI MD (04/30/2021 10:33 PM) [facility] DICTATED AND SIGNED BY: VIRGIL MAKI MD DATE: 04/30/212219 CC: TAINA KRISHNAN MD; SABINE ROSAS MD; JAN AMEZQUITA APRN ~MTH0 0 [facility] [address] [place] [id number] IMAGING REPORT Signed PATIENT: NORMAN ANGEL ACCOUNT: [id number] : 1960 LOCATION: ER AGE: 60 SEX: F EXAM STATUS: REG ER ORD. PHYSICIAN: JAN AMEZQUITA APRN REASON: soa PROCEDURE: PORTABLE CHEST 1V Study: XR CHEST 1V Indication: Shortness of air. Comparison: 02/12/2021 Findings: Spinal cord stimulator device. Several EKG wires. The cardiomediastinal silhouette and robert are within normal limits. No focal airspace infiltrate, increasing effusion or pneumothorax. Impression: No acute radiographic abnormality of the chest. Electronically signed by: VIRGIL MAKI MD (04/30/2021 7:58 PM) [facility] DICTATED AND SIGNED BY: VIRGIL MAKI MD DATE: 04/30/211956 CC: TAINA KRISHNAN MD; JAN AMEZQUITA APRN ~MTH0 0 (SABINE ROSAS MD) Heart Score: C/O Chest Pain: Yes HEART Score for Chest Pain: HEART Score for Chest Pain Response (Comments) Value History Moderately Suspicious 1 ECG Normal 0 Age >45 - < 65 1 Risk Factors No Risk Factors 0 Total 2 Risk Factors: Risk Factors: DM, Current or recent (<one month) smoker, HTN, HLP, family history of CAD, obesity. Risk Scores: Score 0 - 3: 2.5% MACE over next 6 weeks - Discharge Home Score 4 - 6: 20.3% MACE over next 6 weeks - Admit for Clinical Observation Score 7 - 10: 72.7% MACE over next 6 weeks - Early Invasive Strategies (JAN AMEZQUITA APRN) Course & Med Decision Making: Course & Med Decision Making Pertinent Labs and Imaging studies reviewed. (See chart for details) [] Patient presents to the emergency department today for multiple complaints. Patient is reporting nausea, cough, shortness of breath, left-sided chest pain, headache, vomiting, dizziness, diarrhea with a positive Covid exposure. Patient be tested for COVID-19 in the ER. Patient's work-up will also include blood work, EKG, chest x-ray. Patient was sent by Dr. Krishnan's office for hypotension but her vital signs are stable and she is not hypotensive in the ER.. Reflux resolved after GI cocktail. Patient requesting pain medication, ordered. ASA given. CBC unremarkable. Chest x-ray shows no acute findings. Patient's creatinine was 1.2 consistent with previous lab findings. Her D-dimer is 1.[address] angio of her chest was performed to rule out a PE. This is pending at this time 1114. 2201: I discussed patient's case with supervising physician who will assume patient care at this time for shift change. (JAN AMEZQUITA APRN) Course & Med Decision Making See [facility] chart for details prior shift change. Consider EGD. Take Pepcid twice aday. Follow Covid test that is pending. Complete Covid vaccination series. Follow up Afib- and take Eliquis twice a day. Practice Covid isolation until Covid blood test results are known. Impression: 1. Viral Syndrome- ( Suspect Covid) 2. GERD/ Esophagitis- Patulous esophagus 3. Elevated D-dimer 4. Pleural Effusion- resolving from 02/15/2021 5. Afib. (SABINE ROSAS MD) Gamal Disclaimer: Dragmarguerite Disclaimer: This electronic medical record was generated, in whole or in part, using a voice recognition dictation system. (JAN AMEZQUITA APRN) Departure Departure: Referrals: TAINA KRISHNAN MD (PCP) Scripts Apixaban (ELIQUIS) 5 Mg Tablet 5 MG PO BID for afib for 30 Days, #60 TAB Prov: SABINE ROSAS MD 04/30/21 Famotidine (PEPCID) 20 Mg Tablet 20 MG PO BID for GERD for 30 Days, #60 TAB Prov: SABINE ROSAS MD 04/30/21 Attending Signature Attending Signature I have participated in the care of this patient and I have reviewed and agree with all pertinent clinical information above including history, exam, and recommendations. (SABINE ROSAS MD) Attending Signature Attending Signature I have participated in the care of this patient and I have reviewed and agree with all pertinent clinical information above including history, exam, and recommendations. (SABINE ROSAS MD) Dragon Disclaimer This chart was dictated in whole or in part using Voice Recognition software in a busy, high-work load, and often noisy Emergency Department environment. It may contain unintended and wholly unrecognized errors or omissions. (SABINE ROSAS MD) JAN AMEZQUITA APRN Apr 30, 2021 19:03 SABINE ROSAS MD Apr 30, 2021 22:21
[2021-04-30] MEDS ORDERED: ASPIRIN CHEWABLE 81 MG TABLET. PO ONE (20:00)
--- NOTE | 2021-04-30 20:00 | RAD ---
Study: XR CHEST 1V Indication: Shortness of air. Comparison: 02/12/2021 Findings: Spinal cord stimulator device. Several EKG wires. The cardiomediastinal silhouette and robert are within normal limits. No focal airspace infiltrate, inc reasing effusion or pneumothorax. Impression: No acute radiographic abnormality of the chest. Electronically signed by: VIRGIL MAKI MD (04/30/2021 7:58 PM) [facility]
[2021-04-30 20:22] LABS: BASO % 0 % (0-3); EOS # 0.3 x10^3/uL (0.0-0.7); EOS % 4 % (0-3); HEMATOCRIT 32.9 % (36.0-47.0); HEMOGLOBIN 10.4 g/dL (12.0-15.5); LYMPH # 1.8 x10^3/uL (1.0-4.8); LYMPH % 25 % (24-48); MEAN CORPUSCULAR HEMOGLOBIN 25 pg (25-35); MEAN CORPUSCULAR HGB CONC 32 g/dL (31-37); MEAN CORPUSCULAR VOLUME 78 fL (79-100); MONO # 0.4 x10^3/uL (0.0-1.1); MONO % 6 % (0-9); NEUT # 4.7 x10^3uL (1.8-7.7); NEUT % 65 % (31-73); PLATELET COUNT 278 x10^3/uL (140-400); RED BLOOD COUNT 4.23 x10^6/uL (3.50-5.40); RED CELL DISTRIBUTION WIDTH 20.2 % (11.5-14.5); WHITE BLOOD COUNT 7.2 x10^3/uL (4.0-11.0)
[2021-04-30 20:40] LABS: CALCIUM 8.8 mg/dL (8.5-10.1); CREATININE 1.2 mg/dL (0.6-1.0); GFR 45.8; POTASSIUM 3.7 mmol/L (3.5-5.1)
[2021-04-30] MEDS ORDERED: IOHEXOL 350 MG/ML 100 ML VIAL. IV ONE (20:45)
[2021-04-30 20:46] LABS: ALBUMIN 3.6 g/dL (3.4-5.0); ALBUMIN/GLOBULIN RATIO 1.1 (1.0-1.7); TOTAL BILIRUBIN 0.3 mg/dL (0.2-1.0); TOTAL PROTEIN 6.9 g/dL (6.4-8.2)
[2021-04-30 21:03] LABS: ANISOCYTOSIS SLIGHT; PLT ESTIMATE ADEQUATE (ADEQUATE)
[2021-04-30 21:13] LABS: INFLUENZA A PATIENT NEGATIVE (NEGATIVE); INFLUENZA B PATIENT NEGATIVE (NEGATIVE)
--- NOTE | 2021-04-30 22:35 | RAD ---
Study: CT CHEST WITH CONTRAST - PULMONARY ANGIOGRAM History: Elevated d-dimer. Shortness of air. Pulmonary embolism. Comparison: 02/15/2021 Technique: Helical CT of the chest performed after the administration of 85 cc Omnipaque 350 intrave nous contrast and timed for angiographic evaluation of the pulmonary arteries per PE protocol. Whitt l and sagittal 3D MIP reformations were obtained. One or more of the following individualized dose reduction techniques were utilized for this examinat ion: 1. Automated exposure control 2. Adjustment of the mA and/or kV according to patient size 3. Use of iterative reconstruction technique. Findings: Pulmonary Arteries: No main, lobar or segmental pulmonary embolism. Main pulmonary artery caliber is within normal limits. Heart/Systemic Vasculature: No aortic dissection or aneurysm. The visualized great vessels are patent . Trivessel calcific coronary artery disease. Mediastinum: Similarly sized lymph nodes. Moderate hiatal hernia again noted. Much of the esophagus i s distended with fluid/debris. Paraesophageal lymph node to the left of midline on image 75 series 4 has not significant changed. Mild circumferential esophageal wall thickening in this region. Lungs: A few small solid pulmonary nodules were present on the comparison and have not changed in siz e to include a 5 mm subpleural nodule at the right lower lobe on image 74 series 4. A few very faint groundglass nodular foci are newly seen such as within the lingula on image 65 series 4 measuring 5 m m. Improved aeration of the lungs from the comparison. Tiny amount of residual pleural fluid. Soft ti ssue density at the medial aspect of the left lower lobe abutting a portion of the mediastinum is unc hanged at 2.3 cm AP on image 74 series 4. No central airway occlusion. Neck/Axilla/Body Wall: No axillary adenopathy. Upper Abdomen: Unchanged low-attenuation focus centrally within the right hepatic lobe. Absent gallbl adder. Bones: No acute or aggressive osseous abnormality. Miscellaneous: Spinal cord stimulator device. IMPRESSION: 1. No main, lobar or segmental pulmonary embolism. 2. Improved aeration of the lungs from the 02/15/2021 comparison and pleural effusions have decreased now with only trace residual. Several small solid pulmonary nodules are unchanged in size as is a br anching soft tissue density focus at the medial aspect of the left lower lobe again measuring 2.3 cm AP. In regard to the left lower lobe abnormality follow-up is recommended in 3 months to confirm stab ility or resolution. 3. Patulous esophagus containing fluid. Circumferential wall thickening of the distal esophagus and a moderate-sized hiatal hernia. The findings could all relate to reflux but a malignant process causi ng partial obstruction is not excluded. Direct inspection with endoscopy is recommended. 4. A few very faint groundglass densities within the lingula. Given the esophageal findings very mil d aspiration is possible. 5. Trivessel calcific coronary artery disease and additional unchanged findings described above. Electronically signed by: VIRGIL MAKI MD (04/30/2021 10:33 PM) [facility]
[2021-04-30 22:59] VITALS: BP 133/83
[2021-04-30] MEDS ORDERED: FAMOTIDINE 20 MG/2 ML VIAL IVP ONE (23:00)
[2021-04-30] MEDS ORDERED: MAGNESIUM HYDROXIDE 2,400 MG/30 ML ORAL.SUSP. PO ONE (23:00)
[2021-04-30] MEDS ORDERED: FAMO-63 PO (23:03)
[2021-04-30] MEDS ORDERED: APIX5TAB3 PO (23:03)
[2021-04-30 23:22] LABS: BACTERIA,URINE FEW /HPF (0-FEW); BILIRUBIN,URINE NEG (NEG); CLARITY,URINE HAZY; COLOR,URINE YELLOW; GLUCOSE,URINE NEG (NEG); NITRITE,URINE NEG (NEG); RBC,URINE 0 /HPF (0-2); SQUAMOUS EPITHELIAL CELL,UR MOD /LPF; UROBILINOGEN,URINE 0.2 mg/dL (0.2 mg/dL)
[2021-04-30 23:23] LABS: AMORPHOUS SEDIMENT,UR PRESENT /HPF
[2021-04-30] MEDS ORDERED: APIXABAN 5 MG TABLET. PO SCH (23:30)
--- NOTE | 2021-05-01 03:02 | EKG ---
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
== END 2021-04-30 23:30 | disposition home or self-care (01) ==
LOC: ER 18:26
DX: K21.9 Gastro-esophageal reflux disease without esophagitis (principal); J90 Pleural effusion, not elsewhere classified; I48.91 Unspecified atrial fibrillation; R79.1 Abnormal coagulation profile; Z20.822 Contact with and (suspected) exposure to COVID-19; Z88.0 Allergy status to penicillin; Z90.49 Acquired absence of other specified parts of digestive tract; Z90.710 Acquired absence of both cervix and uterus
CPT/HCPCS: 36415; 71045; 71275; 80053; 81001; 84484; 85007; 85025; 85379; 87086; 87426; 87804; 93005; 96361; 96374; 96375; 99285; C9803; J2405; J3010; J3490; J7030; Q9967; U0003

== ENCOUNTER → 2021-05-27 | Outpatient (CLI) | payer MEDICARE ==
[2021-04-30 22:59] VITALS: BP 133/83
[~2021-05-27] MED LIST changes: +APIX5TAB3 PO; +FAMO-63 PO; +REGADENOSON 0.4 MG/5 ML DISP.SYRIN. IV ONE
--- NOTE | 2021-05-27 12:40 | RAD ---
MR#: [id number] Date of Study: 05/27/2021 Ordering Physician: MONCHO STEVENSON, Referring Physician: SULY DOUGLAS Tech: RT Austin Vidal) (N) APPROVED REPORT Test Type: Pharmacological Stress Nurse/Tech: RT Young (Aamir) (N) Test Indications: chest pain Cardiac History: none Medications: see EHR Medical History: stroke 2016 Resting ECG: sinus rhythm Resting Heart Rate: 72 bpm Resting Blood Pressure: 161/93mmHg Pretest Chest Pain: None Nurse/Tech Notes Consent: The procedure was explained to the patient in lay terms. Informed consent was witnessed. Bryce eout was entered into [employer]para. History and Stress Test performed by RT Young (Aamir) (N) Pharm. Details Pharmacologic stress testing was performed using 0.4mg per 5ml of regadenoson given intravenously ove r 7-10 seconds. Stress Symptoms Dyspnea POST EXERCISE Reason for Termination: Infusion complete Max HR: 103 bpm Max Blood Pressure: 175/75mmHg INTERPRETATION Stress EKG Conclusion: Baseline EKG showed sinus rhythm. No ischemic changes at peak stress. No arr hythmias. Imaging Protocol IMAGE PROTOCOL: Rest Tc-99m/stress Tc-99m 1 day Rest: Stress: Viability: Radiopharm.Tc99m FtpylwybiIy05i Sestamibi Dose10.8mCi 32mCi Duration 15min. 10min. Img Date 05/27/2021 05/27/2021 Inj-Img Uzld88puw. 60min. Rest Admin Site:IV - Right AntecubitalAdministrator: RT Young (R)(N) Stress Admin Site: IV - Right AntecubitalAdministrator: RT Austin Vidal)(N) STRESS DATA End Diast. Vol.41.0mlAv. Heart Rate79.0bpm End Syst. Vol.6.0mlCO Index BSA2.7L/min Myocardial Mass80.0gEject. Lcvgpigo00.0% Stress Rates Pk. Fill Rate3.83EDV/secLVtime Pk. Fill 209.76msec Pk. Empty Rate5.67ESV/secLVtime Pk. Jlgas960.81msec 1/3 Pk. Fill1.62EDV/sec Stress Scores Regional WT1.00Summed WT8.00 Regional WM0.00Summed WM2.00 Study quality was . Left Ventricular size was Normal at Rest and Stress. Lung uptake was . Left Ventricular ejection fraction is 84%. The rest and stress images show normal perfusion, normal contraction and thickening. LV Perf. Quant 17 Seg. SSS0.00 17 Seg. SRS0.00 17 Seg. SDS0.00 Stress Defect Extent (% LAD)0.00Rest Defect Extent (% LAD)0.00Rev. Defect Extent (% LAD)0.00 Stress Defect Extent (% LCX) 0.00Rest Defect Extent (% LCX)0.00Rev. Defect Extent (% LCX)0.00 Stress Defect Extent (% RCA)0.00Rest Defect Extent (% RCA)0.00Rev. Defect Extent (% RCA)0.00 Stress Defect Extent (% JENNIFER)0.00Rest Defect Extent (% JENNIFER)0.00Rev. Defect Extent (% JENNIFER)0.00 Conclusion 1. Regadenoson cardioisotope stress test did not show any evidence of ischemia or infarct. 2. Normal left ventricular systolic function with ejection fraction calculated at 84%. 3. Low risk for cardiac events. Signed by : Danny Jasso, Electronically Approved : 05/27/2021 12:40:11
== END ==
LOC: NM 07:50
PROVIDERS: ATTEND Internal Medicine Cardiovascular Disease
DX: R07.9 Chest pain, unspecified (principal)
CPT/HCPCS: 78452; 93017; A9500; J2785

== ENCOUNTER → 2021-08-23 | Outpatient (CLI) | payer MEDICARE ==
[~2021-08-23] MED LIST changes: -REGADENOSON 0.4 MG/5 ML DISP.SYRIN. IV ONE
--- NOTE | 2021-08-23 13:21 | RAD ---
PQRS Compliance Statement: One or more of the following individualized dose reduction techniques were utilized for this examinat ion: 1. Automated exposure control 2. Adjustment of the mA and/or kV according to patient size 3. Use of iterative reconstruction technique CT THORAX WO 08/23/2021 10:56 AM Indication: Lung nodule. Cough for months. No smoking history. COMPARISON: CT chest 04/30/2021, 01/25/2021. TECHNIQUE: Multiple axial CT images of the chest were obtained without intravenous contrast. Coronal and sagittal reformats are provided. FINDINGS: Thyroid gland is normal in appearance. There are no pathologically enlarged axillary, mediastinal or hilar lymph nodes. Heart size is within normal limits. Thoracic aorta is normal in course and caliber. There is no significant pericardial e ffusion. Thoracic esophagus is normal in appearance. Anterior chest wall appears intact. Three-vessel coronary artery vascular calcifications are present. There is a 3 mm solid noncalcified pulmonary nodule identified within the left upper lobe (series 2, image 35) is stable. There is a subpleural 4 mm solid noncalcified pulmonary nodule in the lateral le ft lower lobe (series 2, image 56), stable. There is a stable 4 mm solid noncalcified pulmonary nodul e in the posterior right lower lobe (series 2, image 54). There is a stable 3 mm solid noncalcified p ulmonary nodule right middle lobe (image 53). No new or enlarging solid noncalcified pulmonary nodule s.. There are no pleural effusions, pulmonary vascular congestion or pneumothorax. Lungs are clear wi thout focal airspace consolidation. Central airways are clear. There is 1.6 cm simple cyst in the right hepatic lobe. Cholecystectomy changes are present. Small to moderate-sized hiatal hernia. No suspicious osseous normality. Spinal epidural leads are maryam ntified terminating at the T6-T7 vertebral level. IMPRESSION: Solid noncalcified pulmonary nodules measure up to 4 mm, stable from 04/30/2021 and 01/25/2021. Determi nation of 2 year stability is recommended to confirm benign etiology. Small to moderate-sized hiatal hernia. Electronically signed by: Janessa Aguirre MD (08/23/2021 1:18 PM) [id number]
== END ==
LOC: CT 10:45
PROVIDERS: ATTEND Internal Medicine Pulmonary Disease
DX: R91.8 Other nonspecific abnormal finding of lung field (principal); I25.10 Atherosclerotic heart disease of native coronary artery without angina pectoris; K76.89 Other specified diseases of liver; K44.9 Diaphragmatic hernia without obstruction or gangrene; Z90.49 Acquired absence of other specified parts of digestive tract
CPT/HCPCS: 71250